=== PATIENT | female | born 1945 | race Caucasian/White ===

== ENCOUNTER 2017-05-28 14:30 | Inpatient (IN) | payer OTHER ==
--- NOTE | 2017-05-28 15:33 | EDPHY ---
HPI/HX/ROS/PE/MDM Narrative: CHIEF COMPLAINT: Leg swelling, dyspnea HPI: The patient is a 71 y/o female arriving with an acquaintance complaining of bilateral leg swelling and dyspnea onset about one month ago and worsening significantly this last week. Her medical history includes lupus and rheumatoid arthritis. Around the time her swelling began she noticed a cough as well. She' s had increasing dyspnea since these symptoms began and she has been unable to sleep while lying flat. This week she noticed blisters on both feet and intentionally ruptured these with a knife, but they have continued to reform. Three days ago she noticed redness and lymph draining from both legs. She went to urgent care two days ago and the urgent care doctor attempted to get her admitted to the hospital, but this did not happen. Last night she describes the fluid from her legs soaking her bed. She notes she has taken "a quarter of baby aspirin every 3-4 hours" for decades to treat her pain. REVIEW OF SYSTEMS: Aside from elements discussed in the HPI, a comprehensive 10-point review of systems was reviewed and is negative. PMH: Anxiety, lupus, rheumatoid arthritis, insomnia SOCIAL HISTORY: Nonsmoker. Acquaintance at bedside. "My boyfriend in 90 years old and barely drives." Prior medical records reviewed including ED visit 10/10/11 for ankle bleeding. PHYSICAL EXAM: General:Patient is alert, cachectic, talkative, in no acute distress. ENT:Eyes are normal to inspection. ENT inspection normal. Neck: Normal inspection. Full range of motion. Respiratory:No respiratory distress. Mild rales bilaterally. Cardiovascular: Tachycardic rate and rhythm. Strong peripheral pulses. Normal cap refill. Abdomen:The abdomen is nontender to palpation. There are no peritoneal signs. Back: Normal to inspection. No tenderness to palpation. Skin: Normal color. No rash. Warm and dry. Extremities: Severe 3+ pitting edema BLE with erythema extending to level just below knee. Diffuse weeping with multiple blisters and several chronic- appearing ulcers, worse on L rees and L posterior foot. Neuro: Oriented x3. Normal motor function. Normal sensory function. ED Course: This is a cachectic 71 y/o female with rheumatoid arthritis who presents with a one-month history of worsening bilateral leg swelling, cough, dyspnea, and orthopnea. She denies prior diagnosis of CHF or other cardiac or respiratory diseases, but is concerned that could be the cause of her symptoms today. On exam, she has mild rales bilaterally, tachycardia, and diffuse pitting edema of her bilateral lower extremities with weeping and ulcers. She is not hypoxemic. Presentation is suggestive of CHF. Plan for IV, labs, chest x-ray, EKG, and admission. Chest x-ray: cardiomegaly, no obvious infiltrate. The 12 lead EKG was interpreted by myself. Sinus mechanism rate 95. See hard copy and/or "tracemaster" electronic copy for interpretation. BNP elevated at 8100, which is consistent with CHF. Echocardiogram ordered. Spoke with hospitalist service. Dr. Myers accepts admission for CHF. MDM: This patient presents with signs and symptoms of acute CHF exacerbation. Her leg exam is quite impressive, but unclear if this represents acute cellulitis vs chronic changes - I have deferred antibiotics to inpatient team. She is in no acute distress. There are clearly some mental health issues underlying her presentation. I see no signs of PE, ACS, PTX, TAD. - Data Points Imaging Results: Imaging Impressions Chest X-Ray 05/28/17 15:39 Impression: Cardiomegaly without edison edema. No discrete pneumonia. Imaging: I viewed and interpreted images myself Laboratory Results: Laboratory Results 05/28/17 16:05 05/28/17 16:05 05/28/17 05/28/17 05/28/17 16:05 16:05 16:05 WBC 7.72 10^3/uL 10^3/uL (3.80-9.50) RBC 4.47 10^6/uL 10^6/uL (4.18-5.33) Hgb 12.6 g/dL g/dL (12.6-16.3) Hct 39.9 % % (38.0-47.0) MCV 89.3 fL fL (81.5-99.8) MCH 28.2 pg pg (27.9-34.1) MCHC 31.6 g/dL L g/dL (32.4-36.7) RDW 15.0 % % (11.5-15.2) Plt Count 237 10^3/uL 10^3/uL (150-400) MPV 9.6 fL fL (8.7-11.7) Neut % (Auto) 76.8 % H % (39.3-74.2) Lymph % (Auto) 10.5 % L % (15.0-45.0) [place] % (Auto) 10.9 % % (4.5-13.0) Eos % (Auto) 0.9 % % (0.6-7.6) Baso % (Auto) 0.6 % % (0.3-1.7) Nucleat RBC Rel Count 0.0 % % (0.0-0.2) Absolute Neuts (auto) 5.93 10^3/uL 10^3/uL (1.70-6.50) Absolute Lymphs (auto) 0.81 10^3/uL L 10^3/uL (1.00-3.00) Absolute Monos (auto) 0.84 10^3/uL H 10^3/uL (0.30-0.80) Absolute Eos (auto) 0.07 10^3/uL 10^3/uL (0.03-0.40) Absolute Basos (auto) 0.05 10^3/uL 10^3/uL (0.02-0.10) Absolute Nucleated RBC 0.00 10^3/uL 10^3/uL (0-0.01) Immature Gran % 0.3 % % (0.0-1.1) Immature Gran # 0.02 10^3/uL 10^3/uL (0.00-0.10) PT 15.9 SEC H SEC (12.0-15.0) INR 1.25 H (0.83-1.16) APTT 27.4 SEC SEC (23.0-38.0) Sodium 139 mEq/L mEq/L (135-145) Potassium 5.0 mEq/L mEq/L (3.5-5.2) Chloride 101 mEq/L mEq/L (97-110) Carbon Dioxide 29 mEq/l mEq/l (22-31) Anion Gap 9 mEq/L mEq/L (8-16) BUN 23 mg/dL mg/dL (7-23) Creatinine 0.5 mg/dL L mg/dL (0.6-1.0) Estimated GFR > 60 Glucose 88 mg/dL mg/dL (70-100) Calcium 8.9 mg/dL mg/dL (8.5-10.4) Total Bilirubin 0.8 mg/dL mg/dL (0.1-1.4) Conjugated Bilirubin 0.4 mg/dL mg/dL (0.0-0.5) Unconjugated Bilirubin 0.4 mg/dL mg/dL (0.0-1.1) AST 32 IU/L IU/L (14-46) ALT 57 IU/L H IU/L (9-52) Alkaline Phosphatase 115 IU/L IU/L (38-126) Troponin I < 0.012 ng/mL ng/mL (0.000-0.034) NT-Pro-B Natriuret Pep 8100 pg/mL H pg/mL (0-125) Total Protein 6.3 g/dL g/dL (6.3-8.2) Albumin 3.2 g/dL L g/dL (3.5-5.0) General Initial Vital Signs: Initial Vital Signs Temperature (C) 36.8 C 05/28/17 14:41 Heart Rate 84 05/28/17 14:41 Respiratory Rate 15 05/28/17 14:41 Blood Pressure 136/93 H 05/28/17 14:41 O2 Sat (%) 93 05/28/17 14:41 O2 Delivery Mode Room Air Allergies/Adverse Reactions: clindamycin Allergy (Verified 05/28/17 14:39) Penicillins Allergy (Verified 08/18/11 11:05) Home Medications: Medication Instructions Recorded Aspirin [Aspirin 81mg (*)] 20.25 mg PO Q3-4PRN PRN 05/28/17 Departure - Departure Disposition: [facility] Acute Condition: Fair Report Scribed for: Mariano Law Report Scribed by: Argelia Medley Date of Report: 05/28/17 Time of Report: 15:39 Physician Review and Approval Statement: Portions of this note were transcribed by an ED scribe. I personally performed the history, physical exam, and medical decision making; and confirm the accuracy of the information in the transcribed note.
[2017-05-28 16:28] LABS: PLATELET COUNT 237 10^3/uL (150-400)
--- NOTE | 2017-05-28 16:30 | CPEKG ---
Heart Rate: 95 RR Interval: 632 P-R Interval: 124 QRSD Interval: 84 QT Interval: 349 QTC Interval: 439 P Burnett: 75 QRS Burnett: 119 T Wave Burnett: 193 EKG Severity - ABNORMAL ECG - EKG Impression: SINUS RHYTHM EKG Impression: RIGHT AXIS DEVIATION EKG Impression: LOW VOLTAGE IN FRONTAL LEADS EKG Impression: ABNORMAL T, CONSIDER ISCHEMIA, LATERAL LEADS Electronically Signed By: Mariano Law 29-May-2017 16:37:36
[2017-05-28 16:46] LABS: INR 1.25 (0.83-1.16); PROTIME(PATIENT) 15.9 SEC (12.0-15.0)
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
[2017-05-28] MEDS ORDERED: HYDROmorphone HCL/NS 0.5 MG/ML SYR IVP PRN (19:44)
[2017-05-28] MEDS ORDERED: ONDANSETRON 4 MG/2 ML VIAL IVP PRN (19:44)
[2017-05-28] MEDS ORDERED: ONDANSETRON DISINTEGRATING 4 MG TAB PO PRN (19:44)
[2017-05-28] MEDS ORDERED: oxyCODONE IR 5 MG TAB PO PRN (19:44)
[2017-05-28] MEDS ORDERED: ACETAMINOPHEN 325 MG TAB PO PRN (19:44)
[2017-05-28] MEDS ORDERED: ASPIRIN 81 MG CHEWABLE TAB PO ONE (21:30)
--- NOTE | 2017-05-28 22:22 | GHP ---
[f rep st] HISTORY AND PHYSICAL DATE OF ADMISSION: 05/28/2017 CHIEF COMPLAINT: Leg pain. HISTORY: This is a 71-year-old female who is a challenging historian, but presents with complaints o f bilateral lower extremity leg swelling with weeping edema and pain. She notes this occurs in the s etting of having had several weeks where her breathing at night has gotten worse. She notes that ini tially she was sleeping, propped up on 2 pillows, but despite that she was having issues with cough a nd shortness of breath. This progressed to where she ultimately began sleeping sitting upright on he r couch at night. She notes that every time she tries to lie down, she becomes short of breath and s omewhat panicky. She believes that the issues with her legs only developed over the last week, altho ugh she admits that she does not tend to look at her naked body ever. She notes that when she did lo ok at her leg, she noted there was some blisters on the bilateral legs, and she and her boyfriend dec ided to sterilize a knife with alcohol and proceeded to cut the blisters open. Despite that, she not ed that the weeping continued and was soaking her socks and pants. She states she has not had blood work done or seen many doctors in the past. She thinks the last time she had blood work was approxim ately 40 years ago. She does describe significant issues with getting out of the house and not havin g transportation. She also has severe arthritis that she has dealt with for the last 40 years and martin s been medicating only with baby aspirin. PAST MEDICAL HISTORY: 1. Per patient, only arthritis. She believes it is rheumatoid, though she states she has tested neg ative for rheumatoid factor. 2. Eczema. She also states she has had a diagnosis of lupus. FAMILY HISTORY: Mother of CHF and COPD. SOCIAL HISTORY: Patient is originally from [place]. She is currently living alone here in [place]. 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 She has a boyfriend who lives in [place], and she sees intermittently. Otherwise, denies having much help here in town. She is a nonsmoker, nondrinke r. REVIEW OF SYSTEMS: A 10-point review of systems is obtained and negative except as per HPI. HOME MEDICATIONS: Aspirin, approximately 20 mg every 3-4 hours as needed. ALLERGIES: Include clindamycin and penicillin. PHYSICAL EXAMINATION: VITAL SIGNS: Blood pressure 128/68, heart rate 78, respiratory rate 18, O2 sa turations 96% on room air. Temperature is 37. GENERAL APPEARANCE: This is a very thin/cachectic wo man. She is awake and alert. She is in no acute distress. EYES: Anicteric. HENT: Oropharynx kaley ar. CARDIOVASCULAR: Regular rate and rhythm, no murmurs, rubs or gallops. PULMONARY: Clear to aus cultation bilaterally to anterior exam. ABDOMEN: Soft, nontender. Positive bowel sounds. EXTREMITIES: Bilateral lower extremities with weeping edema and significant erythema to the knees. There are what appear to be chronic wounds on the medial aspect of the ankles bilaterally, as well as the shins; very tender to palpation. NEUROLOGIC/PSYCHIATRIC: Patient is quite tangential in her sp eech, and her speech is pressured, but otherwise pleasant and appropriate. CLINICAL DATA: Labs reviewed. Significant for a proBNP of 8100. Troponins are negative x2. TSH is 3.4. White blood cell count is 7.7. Chest x-ray personally reviewed and interpreted, shows cardiomegaly without edison edema or pneumonia. EKG personally reviewed and interpreted shows sinus rhythm, right axis deviation. ASSESSMENT AND PLAN: This is a 71-year-old female with past medical history that includes advanced r heumatoid arthritis and question of lupus presenting with severe bilateral lower extremity edema and concerns for congestive heart failure. 1. Congestive heart failure: The patient has what appears to be largely right-sided symptoms of hea rt failure, though also complaints of orthopnea and paroxysmal nocturnal dyspnea. Chest x-ray does n ot show significant pulmonary edema. Will obtain an echocardiogram in the morning. BNP quite elevat ed. Troponin is negative and EKG not showing any signs of acute ischemia. 2. Bilateral lower extremity edema/venous stasis. As above, patient's bilateral lower extremities a re significantly erythematous with weeping edema and what appeared to be chronic nonhealing wounds, l ikely secondary to chronic venous stasis. A wound care consultation has been placed and echocardiogr am ordered. 3. Rheumatoid arthritis. The patient with severe deformities of the hands consistent with a presume d diagnosis of rheumatoid arthritis. Patient states that she has attempted to have a diagnosis made in the past, which was never made, and she has not been on any sort of rheumatoid arthritis medicatio ns. Physical Therapy and Occupational Therapy to be involved. 4. Severe protein calorie malnutrition. Patient presenting with a body mass index of 16. She appea rs cachectic. Will place a dietary consult. We will provide Ensure with meals. 5. Failure to thrive. Concern for patient's overall current living situation. It does sound as if she is alone and has difficulty getting out of the house. She has been dealing with these health iss ues for quite some time without any way to really get herself to a doctor. Case Management, Physical Therapy, and Occupational Therapy to be involved. 6. Code status. Patient states she would like to be a do not resuscitate. DISPOSITION: Inpatient status, given multiple comorbidities with lack of prior workup, suspect patie nt will need greater than 48 hours' stay. Patient is new to my care. Old records reviewed, summarized as per HPI, and past medical history. C are plan reviewed with ER physician including plans for further workup of presumed congestive heart f ailure. /[id number]/MODL
--- NOTE | 2017-05-29 00:38 | PDMN ---
Medical Necessity Medical necessity: C/M review: est. > 2 MN LOS for eval and TX of acute and persistent - congestive heart failure, orthopnea, paroxysmal nocturnal dyspnea, bilateral lower extremity edema / venous stasis - bilateral lower extremities erythematous with weeping edema and what appeared to be chronic nonhealing wounds present on admission, severe protein calorie malnutrition, failure to thrive requiring planned echocardiogram, Dietary consult, Wound care consult, Case management consult, ongoing cardiac monitoring, pulse oximetry, acute inpt PT/OT,. comorbid rheumatoid arthritis with severe deformities f the hands present on admission, history of eczema, lupus per H/P.
[2017-05-29 03:49] LABS: PLATELET COUNT 186 10^3/uL (150-400)
[2017-05-29] MEDS ORDERED: ENOXAPARIN 30 MG/0.3 ML SYR SC SCH (09:00)
[2017-05-29] MEDS ORDERED: VANCOMYCIN HCL/NORMAL SALINE 250 ML IV SCH (14:00)
[2017-05-29] MEDS: VANCOMYCIN 1 GM in NS 250 ML IV SCH (14:35)
--- NOTE | 2017-05-29 15:15 | HOSPPROG ---
Hospitalist Progress Note Assessment/Plan: 71 yo female admitted with perpheral edema, and possible cellulits of lower extremities. Blood culture growing gram + organism as yet unidentified. -acute sepsis with bacteremia of gram + cocci, possible cellulitis 2/2 lower extremity infection and edema. Will hold antibiotics per ID as organism is not identified and is a possible contaminant; patient is not septic, Bp, pulse, temp , WBC all normal -CHF with cardiomegaly on CXR and edema of unclear etiology. No h/o CAD, no meds; patient does not see physicians. History unclear. Will need further information -Cellulitis: culture pending. This may represent petechae and soft tissue hemorrhage 2/2 edema, no infection -RA with ulnar deformities of hands and feet; untreated now. No h/o treatment _SPCM: dietary consult -psycho-social issue: will investigate through friends and any family if available Time: 50 minutes; discussed with nursing and team on rounds; discussed with ID Subjective: numerous complaints; no chest pain, SOB, nausea; cannot explain time course of edema; no h/o treatment Objective: Vital Signs Temp Pulse Resp BP Pulse Ox 36.7 C 88 18 93/42 L 92 05/29/17 12:00 05/29/17 12:00 05/29/17 12:00 05/29/17 12:00 05/29/17 12:00 Laboratory Results 05/29/17 03:30 05/29/17 03:30 05/28/17 05/29/17 05/30/17 05:59 05:59 05:59 Intake Total 200 Output Total 250 Balance -50 PT 15.9 SEC (12.0-15.0) H 05/28/17 16:05 INR 1.25 (0.83-1.16) H 05/28/17 16:05 - Time Spent With Patient Time Spent with Patient: greater than 35 minutes Time Spent with Patient: Greater than 35 minutes spent on this patients care, greater than 50% of time spent counseling, educating, and coordinating care regarding the above mentioned plan. - Pending Discharge Pending Discharge Within 24 Hours: No Pending Discharge Within 48 Hours: No - Physical Exam Constitutional: no apparent distress, chronically ill appearing Eyes: PERRL, anicteric sclera Ears, Nose, Mouth, Throat: moist mucous membranes, hearing normal Cardiovascular: regular rate and rhythym, no murmur, rub, or gallop, JVD Respiratory: no respiratory distress, no rales or rhonchi, clear to auscultation Gastrointestinal: normoactive bowel sounds, soft, non-tender abdomen, no palpable masses Genitourinary: no bladder fullness Skin: warm Musculoskeletal: generalized weakness, other (ulnar deformity of wrist; slight deformity of feet; edema LE with superficial lesions. ) ICD10 Worksheet Patient Problems: Problems Problem Status Onset Cellulitis of leg, right Acute
--- NOTE | 2017-05-29 17:59 | ASMTCMCOM ---
CM Note CM Note Notes: 05/29/2017 Case Management Note Met w/pt. Pt reports tooth extraction on Wednesday through [facility]. She had a follow up appointment on . [place] [facility] [place] and was instructed to come to the hospital but delayed care until after her follow up dental appointment on . Pt lives alone. She has a limited income and is unable to hire 28/09 care. Her friend Donta lives in [place] and is able to help sporadically. Her boyfriend of 13 years Vern is in his 90's and is unable to provide care for pt. Pt is over assets for Medicaid as she owns her own home and has a pension. Case Management faxed referrals to [facility], [facility] and [facility]. Case Management d/c poc: to SNF rehab pending acceptance. Case Management to follow. Date Signed: 05/29/2017 05:58 PM Electronically Signed By:Ana Olivas RN
[2017-05-30] MEDS: VANCOMYCIN 1 GM in NS 250 ML IV SCH (02:31)
[2017-05-30 04:10] LABS: PLATELET COUNT 195 10^3/uL (150-400)
[2017-05-30] MEDS: ENOXAPARIN 40 MG/0.4 ML SYR SC SCH (10:10)
[2017-05-30] MEDS: SODIUM FERRIC GLUCONAT/SUCROSE 125 MG in NS 100 ML IV SCH (12:00)
--- NOTE | 2017-05-30 13:54 | WOCRNPDOC ---
[facility] Advanced Assessment Note - Skin Integrity Problem, Advanced Assess Left Lower Lateral Leg Venous Stasis Ulcer Dressing Type: Allevyn Life Dressing Description: Intact, Shadowed Exudate Amount: Minimal Exudate Characteristic(s): Sanguinous Integumentary Issue Intervention: Dressing Changed, Dressing Initialed & Dated Chika Wound Tissue: Erythema, Swollen Chika Wound Swelling: Moderate Wound Bed Color: Brown, Yellow Wound Bed Constitution: Scab, Dried Exudate Site Measurement - Head-to-Toe Length X Width X Depth (cm): 3.5x3.2xscab Skin Integrity Problem Comment: Patient believes this wound began as a blister. She has "taken care of it" since it's formation by allowing it to develop a "nice scab". Wound cleaned gently with NS and gauze. Wound bed covered with therahoney gel and covered with an allevyn. Wound care will round again later this week. Right First Toe Blister Dressing Type: Kerlix, Vaseline Gauze Dressing Dressing Description: Clean/Dry, Intact Exudate Amount: None Integumentary Issue Intervention: Dressing Changed Chika Wound Tissue: Erythema, Swollen, Shiny, Thin, Painful/Tender Wound Bed Constitution: Intact Serous Filled Blister Site Measurement - Head-to-Toe Length X Width X Depth (cm): 4x2.5xintact blister Right Distal Foot Blister Dressing Type: Kerlix, Vaseline Gauze Dressing Dressing Description: Intact, Shadowed Exudate Amount: Minimal Exudate Color: Reddish/Yellow Exudate Characteristic(s): Serosanguinous Integumentary Issue Intervention: Dressing Changed, Hydrogel Applied Chika Wound Tissue: Erythema, Swollen, Painful/Tender Wound Bed Color: Red Wound Bed Constitution: De-roofed Serous Blister Site Measurement - Head-to-Toe Length X Width X Depth (cm): 3x2.5x0.1 Skin Integrity Problem Comment: Patient with several wounds to this region. She reports that they all began as serous filled blisters but now are in various states but largely de-roofed. Area extremely tender. Area cleaned very gently with NS and gauze. Hydrogel applied to wound beds, covered with a contact layer , and wrapped with kerlix. Wound care will round again later this week. Right Proximal Foot Blister Dressing Type: Kerlix, Vaseline Gauze Dressing Exudate Amount: Minimal Exudate Color: Reddish/Yellow Exudate Characteristic(s): Serosanguinous Integumentary Issue Intervention: Dressing Changed, Hydrogel Applied Chika Wound Tissue: Erythema, Swollen, Painful/Tender Wound Bed Color: Red Wound Bed Constitution: De-roofed Serous Blister Wound Edges: Well Defined Site Measurement - Head-to-Toe Length X Width X Depth (cm): 1.5x2.2x0.1 Right Lateral Dorsal Foot Blister Dressing Type: Kerlix, Vaseline Gauze Dressing Dressing Description: Intact, Shadowed Exudate Amount: Minimal Exudate Color: Reddish/Yellow Exudate Characteristic(s): Serosanguinous Integumentary Issue Intervention: Dressing Changed, Hydrogel Applied Chika Wound Tissue: Erythema, Swollen, Painful/Tender Wound Bed Color: Brown, Red Wound Bed Constitution: Dried Exudate, De-roofed Serous Blister Wound Edges: Well Defined Site Measurement - Head-to-Toe Length X Width X Depth (cm): 2x2.8x0.1 Skin Integrity Problem Comment: As all the others, this wound began as a serous filled blister, now a de-roofed blister with adhered exudate covering a portion of the wound.
--- NOTE | 2017-05-30 14:39 | GCON ---
[f rep st] CONSULTATION INFECTIOUS DISEASES CONSULTATION DATE OF CONSULTATION: 05/30/2017 REQUESTING PHYSICIAN: Bandar Simmons MD REASON FOR CONSULTATION: Positive blood cultures. HISTORY OF PRESENT ILLNESS: This is a 71-year-old woman who presented to the emergency room on 05/28/2017, after not seeing a physician for more than 5 years , describing increased shortness of breath and bilateral leg swelling that onset about 1 month ago. The patient denies any specific injuries to her lower extremities and noticed spontaneous blisters that developed on her feet, 1 which she intentionally ruptured with a knife. 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 She also feels intermittent heart racing, but does not know whether she is having fever or chills. She denies any significant weight loss. REVIEW OF SYSTEMS: A 10-point review of systems was performed and is negative except as mentioned in the HPI. Patient denied any urinary symptoms. 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 SOCIAL HISTORY: Nonsmoker. No alcohol. Difficult to get additional social history due to tangential speech. She does note that she has a boyfriend that is 90 years old. FAMILY HISTORY: Reviewed and noncontributory. ALLERGIES: Penicillin causes a mild rash. Clindamycin causes itching and facial swelling. MEDICATIONS: While hospitalized include Tylenol. She received a dose of vancomycin, enoxaparin, iron, IV hydromorphone, Zofran, and oxycodone IR. Her home medications are only aspirin. PHYSICAL EXAMINATION: VITAL SIGNS: She has been afebrile throughout her hospital course. BP 104/48, heart rate 86, respiratory rate 16, saturation 95% on room air, temperature 36.3. GENERAL: This is a cachectic woman with a BMI of 14, lying in bed with rapid fire speech. No dyspnea. HEENT: Fair dentition. Mildly dry mucous membranes. No oral ulcerations. NECK: Supple and thin. CARDIOVASCULAR: Regular rate. Faint systolic murmur. CHEST: Breathing easy. Clear bilaterally. ABDOMEN: Scaphoid, thin, nontender. Bowel sounds are present. EXTREMITIES: Patient has bilateral lower extremity edema, and a stocking distribution of petechiae in her bilateral lower extremities, with overlying erythema right greater the left, with multiple bullae of the right lower extremity, most prominently on the dorsum of her right foot. She also has a more chronic-appearing ulcer on the lateral aspect of her left leg that is a bit larger than a silver dollar with necrotic scab in the base. Significant tenderness to palpation of her legs, particularly on the dorsum. Unable to palpate pulses on the right due to pain, but I did palpate normal pulse on the dorsum of her foot on the left. Joint exam shows chronic changes consistent with rheumatoid arthritis, but no active joint inflammation. SKIN: Only significant findings are listed under the extremity exam. NEUROLOGIC: She is moving all 4 extremities equally. Marked tangential speech. LABORATORY DATA: White count has been normal throughout hospitalization. Today is 5.8, hematocrit 34, platelets of 195, 65% neutrophils, 70% lymphocytes , 13% monocytes. INR 1.25. Creatinine on admission 0.5, today 0.4. AST 32, ALT 57, BNP 81, albumin 3.2. B12 877, folate greater than 20. TSH 3.4. Iron saturation is 18, TIBC 325, iron is 57. Blood cultures 1 of 2 are growing Aerococcus viridans. IMAGING: Chest x-ray on admission showed cardiomegaly without edison edema or focal pneumonia. EKG was performed that showed a sinus with right axis deviation. Reportedly, echocardiogram was performed, but results are not available. ASSESSMENT AND PLAN: This is a 71-year-old woman with underlying rheumatoid arthritis, not on any therapy for rheumatoid arthritis, who presents with bilateral lower extremity edema x1 month with overlying petechial rash and superimposed erythema most prominently on the right side. 1. Right LE cellulitis. Interestingly, no other laboratory or clinical signs of infection such as fever, hypotension, or tachycardia, but patient may have a blunted response to infection due to underlying malnutrition. The patient does have some mild reactions to penicillin, therefore, treatment with cephalosporins is likely safe. Would start cefazolin 1 g IV q.8 to direct therapy toward cellulitis mediated by Streptococcus. No evidence of purulence making Staphylococcus aureus less likely, MRSA unlikely since patient has not received antibiotics in many years. 2. Underlying petechial rash B LE and bullae: due to infection or vasculitis with bullae . 3. Aerococcus viridans. Typically a urinary pathogen but no urinary data obtained at admit, which was not unreasonable as no symptoms. Unclear to me whether this is a true pathogen. At this point, I would just proceed with therapy with cefazolin and assess further if this is a significant pathogen. If increasing concern that pathogen typically use PCN, higher generation cephalosporin, carbapenem or vancomycin could be used. Thank you for this consultation. We will continue to follow on a daily basis. /[id number]/MODL MTDD
--- NOTE | 2017-05-30 15:28 | HOSPPROG ---
Hospitalist Progress Note Assessment/Plan: 71 yo female admitted with perpheral edema, and possible cellulits of lower extremities. Blood culture growing aerococcus viridans. Is unclear if this is a pathogen. The wounds themselves appear more like strep infections. -acute sepsis with bacteremia growing aerococcus viridans. Wounds itself looked more like strep infection. Patient is currently covered with Rocephin and ID is following closely. It is also possible the area of involves a local vasculitis secondary to her rheumatologic disease. She has not had treatment for the RA for many years. -CHF with cardiomegaly on CXR and edema of unclear etiology. No h/o CAD, no meds; patient does not see physicians. History unclear. Will need further information -complaint of chest pain with a normal ECG and no accompanying symptoms of radiation pleuritic pain. Doubt strongly this is coronary disease. -RA with ulnar deformities of hands and feet; untreated now. No h/o treatment. Will check CRP sed rate HUAN and rheumatoid factor. -SPCM: dietary consult -anemia, iron deficiency suspected; will order Iron studies and give IV iron while in the hospital -psycho-social issue: will investigate through friends and any family if available. CT scan today showed a small meningioma without significant mass effect. Also mild to moderate stenosis at foreamen magnum. None clinical. Behavior medicine consult today. Time: 50 minutes; discussed with nursing and team on rounds; discussed with ID dispo: -patient should go to a SNF given the appearance of her ability for self care. It is unclear if you will accept this. She does not have significant support as there is no family here to help. She seems to avoid physicians. -assess disposition re the behavior medicine findings. She demonstrates tangential thinking and poor judgement; ? if schizophrenia. Subjective: Reports she is feeling better but unspecified improvement. She complains of some chest pain but it is non local. She denies cough fever shortness of breath or pleuritic chest pain. Also denies prior history of coronary disease. Objective: Vital Signs Temp Pulse Resp BP Pulse Ox 37.3 C 88 15 98/47 L 93 05/30/17 15:18 05/30/17 15:18 05/30/17 15:18 05/30/17 15:18 05/30/17 15:18 Laboratory Results 05/30/17 03:17 05/30/17 03:17 05/29/17 05/30/17 05/31/17 05:59 05:59 05:59 Intake Total 200 880 110 Output Total 250 700 600 Balance -50 180 -490 PT 15.9 SEC (12.0-15.0) H 05/28/17 16:05 INR 1.25 (0.83-1.16) H 05/28/17 16:05 - Time Spent With Patient Time Spent with Patient: greater than 35 minutes Time Spent with Patient: Greater than 35 minutes spent on this patients care, greater than 50% of time spent counseling, educating, and coordinating care regarding the above mentioned plan. - Pending Discharge Pending Discharge Within 24 Hours: No Pending Discharge Within 48 Hours: No - Physical Exam Constitutional: no apparent distress, cachectic, other (reports she has always been thin) Eyes: PERRL Ears, Nose, Mouth, Throat: moist mucous membranes, hearing normal Cardiovascular: regular rate and rhythym, no murmur, rub, or gallop Respiratory: no respiratory distress, no rales or rhonchi, clear to auscultation Gastrointestinal: normoactive bowel sounds, soft, non-tender abdomen, no palpable masses Genitourinary: no bladder fullness Skin: warm Musculoskeletal: other (RA deformities of hands and wrist; some ankle, foot deformity) Neurologic: AAOx3, CN II-XII Intact Psychiatric: poor judgement, other (some tangential thinking) ICD10 Worksheet Patient Problems: Problems Problem Status Onset Cellulitis of leg, right Acute chronic disease mgmt/transitional care Acute
--- NOTE | 2017-05-30 15:43 | ASMTCMCOM ---
CM Note CM Note Notes: 05/30/2017 Case Management Note Discussed pt during rounds. Met w/pt in the afternoon to inform of acceptance to [facility]. Pt requested case management fill brother Ishan in on d/c plans. Ishan can be reached at [phone]. Ishan shared that pt is exceptionally bright and started college at age 15 at [employer]. Per Ishan pt graduated at the top of her class. 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 Per Ishan pt moved to [place] in late . Ishan stated that pt appearance has not changed recently and she has not lost any weight recently. Per Ishan, pt is at her baseline. Ishna stated that he is not in a position to provide any caregiving support for his sister. Informed Ishan of d/c plan for [facility] SN[facility] rehab, Ishan in agreement. Case Management requested behavioral health consult with Babita Lucas. Case Management d/c poc: [facility] Case Management to follow. Date Signed: 05/30/2017 03:43 PM Electronically Signed By:Ana Olivas RN
[2017-05-31] MEDS: SODIUM FERRIC GLUCONAT/SUCROSE 125 MG in NS 100 ML IV SCH (10:10)
[2017-05-31] MEDS: ENOXAPARIN 40 MG/0.4 ML SYR SC SCH (12:36)
[2017-05-31] MEDS: ENOXAPARIN 30 MG/0.3 ML SYR SC SCH (14:08)
--- NOTE | 2017-05-31 14:36 | PCMIDPN ---
Assessment/Plan: Assessment: Right lower extremity cellulitis. Non confluent deep erythema persists. Patient does not have any systemic symptoms. She does have underlying immunosuppression autoimmune disease which probably contributes to her proclivity to get soft tissue infection. It is unclear whether the excess edema of the lower extremity pre seeded the infection or is a result of the infection. Plan to continue empiric cefazolin and observe for clinical improvement. I believe that her positive blood culture with aerococcus viridans is a contaminant due to lack of systemic symptoms and lack of growth of the 2nd set of blood cultures. Plan: 1. Continue IV cefazolin. 2. Follow clinical course. Subjective: Patient is resting in her hospital bed. She is complaining about trivial aspects of the food. She denies any fevers or chills. Complains about a lot of minor issues including blood draws and anticoagulation therapy. No significant change in lower extremity swelling or pain. Discussion is challenging secondary to patient's tendency to wander topics. Objective: Cefazolin # 1 Vital Signs Temp Pulse Resp BP Pulse Ox 36.8 C 93 16 105/47 L 93 05/31/17 12:00 05/31/17 12:00 05/31/17 12:00 05/31/17 12:00 05/31/17 12:00 Microbiology 05/30/17 11:25 Gram Stain - Final Foot - Eswab Laboratory Results 05/31/17 04:01 05/30/17 03:17 05/30/17 05/31/17 06/01/17 05:59 05:59 05:59 Intake Total 880 435 110 Output Total 700 1025 200 Balance 180 -590 -90 ESR 25 MM/HR (0-30) 05/31/17 04:01 C-Reactive Protein 55.0 mg/L (<10.0) H 05/31/17 04:01 - Physical Exam General Appearance: WD/WN, alert, no apparent distress, thin, non-toxic Respiratory: lungs clear, normal breath sounds, No respiratory distress Cardiac/Chest: regular rate, rhythm, No tachycardia Extremities: swelling, erythema, No non-tender, No normal inspection, No necrosis Skin: normal color, warm/dry, No rash Neuro/Psych: alert, normal mood/affect, oriented x 3 ICD10 Worksheet Patient Problems: Problems Problem Status Onset Cellulitis of leg, right Acute - ICD10 Problem Qualifiers (1) Cellulitis of leg, right
--- NOTE | 2017-05-31 16:02 | ASMTCMCOM ---
CM Note CM Note Notes: 05/31/2017 Case Management Note Discussed pt during multi disciplinary rounds this morning. Met w/pt this afternoon to discuss pt meeting with [facility] from [facility]. [facility] reviewing wound care notes. Preferred facility is [facility] for pt. Pt stated she has utilized a pyschotherapist at [facility] in the past. Provided info on [facility] outpatient counseling center. Case Management d/c poc: [facility] is pending per [facility] after wound care notes are reviewed. Case Management to follow. Date Signed: 05/31/2017 04:01 PM Electronically Signed By:Ana Olivas RN
--- NOTE | 2017-05-31 17:24 | HOSPPROG ---
Hospitalist Progress Note Assessment/Plan: DIAGNOSES: -acute on likely chronic R side CHF -severe stasis dermatitis iwth uclerations -cellulitis of legs -suspect pulm HTN -concern for COPD due to Xray findings and and R side CHF, and second hand smoke hx -anemia, normocytic, is likely anemia of chronic disease and malnutrition, doubt true Fe deficiency but will check ferritin -severe protein calorie malnutrition -suspect a social phobia disorder/? PTSD PLANS: -I have ordered echocardiogram -I have ordered PFTs -continue abx -wound care -will begin attempt at diuresis -check ferritin levels were and will hold on any further iron therapy until we have that back -she is fairly reluctant to use nutrition supplements but I have encouraged her to trying get nutrition supplements on board In addition to my visit with this patient for rounds I visited her with interdisciplinary rounds and also reviewed her case in detail today with Dr. Rajiv Stout SUBJECTIVE: Complains of ongoing leg and foot pain particularly her right foot Her other main complaint right now is trying to figure out had ordered food from the menu OBJECTIVE Vitals reviewed: Stable without fever Prescription Eyeglass Maker, my review: Sinus Exam: alert oriented, quite anxious skin warm dry color ok resps not labored lungs diminished but otherwise clear BSs heart regular abd soft nondistended nontender, bowel sounds present limbs warm, with marked edema from the upper calf down to the distal feet and quite a bit of severe stasis dermatitis, some open wounds as described earlier, nothing necrotic iv site ok Lab data: Sed rate is normal, CRP a bit elevated in the 50s, other serologic inflammatory markers are all normal so far Stool hemoccults negative Basic met panel normal Hemoglobin remains stable, is normocytic Objective: Vital Signs Temp Pulse Resp BP Pulse Ox 36.9 C 114 H 22 H 129/62 H 91 L 05/31/17 16:40 05/31/17 16:40 05/31/17 16:40 05/31/17 16:40 05/31/17 16:40 Microbiology 05/30/17 11:25 Gram Stain - Final Foot - Eswab Laboratory Results 05/31/17 04:01 05/30/17 03:17 05/30/17 05/31/17 06/01/17 06:59 06:59 06:59 Intake Total 880 435 160 Output Total 950 775 650 Balance -70 -340 -490 PT 15.9 SEC (12.0-15.0) H 05/28/17 16:05 INR 1.25 (0.83-1.16) H 05/28/17 16:05 - Time Spent With Patient Time Spent with Patient: greater than 35 minutes Time Spent with Patient: Greater than 35 minutes spent on this patients care, greater than 50% of time spent counseling, educating, and coordinating care regarding the above mentioned plan. ICD10 Worksheet Patient Problems: Problems Problem Status Onset Cellulitis of leg, right Acute
[2017-05-31] MEDS ORDERED: FUROSEMIDE 20 MG TAB PO ONE (17:30)
[2017-06-01] MEDS: ENOXAPARIN 30 MG/0.3 ML SYR SC SCH (07:51)
[2017-06-01] MEDS ORDERED: ENOXAPARIN 30 MG/0.3 ML SYR SC SCH (09:00)
--- NOTE | 2017-06-01 09:50 | ECHO ---
[email or web address] [address] [address] Main: [phone] Fax: Transthoracic Echocardiogram Name: WENDY MOHR MR#: [id number] Study Date: 06/01/2017 Study Time: 08:11 AM Date of : 1945 Age: 71 year(s) Height: 160 cm (63 in.) Weight: 36.29 kg (80 lb.) BSA: 1.31 m2 Gender: Female Examination: Echo Indication: CHF Image Quality: Contrast: Requested by: Chad Dia BP: 106 mmHg/60 mmHg Heart Rate: Rhythm: Indication: CHF Procedure [employer] City Weighmaster: Cary Martinez [facility] Reading Physician: Nicolette Jacobs MD Requesting Provider: Conclusions: Normal size left ventricle. No LV hypertrophy. Normal global systolic LV function. The ejection fraction is estimated to be 45-50 %. LV septal motion consistent with conduction abnormality.. Normal size right ventricle. Normal RV function. The right atrium is mildly to moderately dilated. Mild mitral valve regurgitation is present. Thickening of both mitral valve leaflets with some semi-mobile components concerning for vegetation. Moderate to severe tricuspid valve regurgitation. Small pericardial effusion. No echocardiographic evidence of hemodynamic compromise. There is a pleural effusion. Consider ISIDORO Measurements: Chambers Valvular Assessment AV/MV Valvular Assessment TV/PV Normal Normal Normal Name Value Range Name Value Range Name Value Range Ao Roxanne (MM): 2.9 cm (2.2 cm-3.7 AV meanP mmHg ( - ) TR Vmax: 2.54 mm/s ( - ) cm) MV E Vmax: 0.70 m/s ( - ) TR PGmax: 26 mmHg ( - ) IVSd (2D): 0.6 cm (0.6 cm-1.1 MV A Vmax: 0.74 m/s ( - ) syst. PAP: 36 mmHg ( - ) cm) MV E/A: 0.95 ( - ) LVDd (2D): 4.6 cm (3.9 cm-5.3 cm) LVDs (2D): 3.3 cm (2.1 cm-4 cm) LVPWd (2D): 0.8 cm ( - ) Patient: WENDY MOHR Study Date: 06/01/2017 Page 1 of 2 08:11 AM LVEF (MOD4): 63 % (>=55 %) EF Range: 45-50 % Continued Measurements: Chambers Valvular Assessment AV/MV Valvular Assessment TV/PV Name Value Name Value Name Value LADs: 3.2 cm MV E/E' Septal: 12.40 CVP (est.): 10 mmHg LADs Lon.6 cm MV E/E' Lateral: 7.30 LA Area: 20.4 cm2 Findings: Left Ventricle: Normal size left ventricle. No LV hypertrophy. Normal global systolic LV function. The ejection fraction is estimated to be 45-50 %. LV septal motion consistent with conduction abnormality.. Right Ventricle: Normal size right ventricle. Normal RV function. Left Atrium: The left atrium is normal in size. Right Atrium: The right atrium is mildly to moderately dilated. Mitral Valve: Mild mitral valve regurgitation is present. Thickening of both mitral valve leaflets with some semi-mobile components concerning for vegetation. Aortic Valve: The aortic valve is normal in appearance and function. Trivial aortic valve regurgitation. Tricuspid Valve: Moderate to severe tricuspid valve regurgitation. The tricuspid valve leaflets are thickened with some semi mobile components. This is concerning for vegetation. . Pulmonic Valve: The pulmonic valve is normal in appearance and function. Trivial pulmonic valve regurgitation. Aorta: The aorta is normal. Pericardium: Small pericardial effusion. No echocardiographic evidence of hemodynamic compromise. There is a pleural effusion. (No Signature Object) Patient: WENDY MOHR Study Date: 06/01/2017 Page 2 of 2 08:11 AM [id number]
[2017-06-01] MEDS ORDERED: NS 1,000 ML IV ONE (09:52)
--- NOTE | 2017-06-01 11:08 | PCMIDPN ---
Assessment/Plan: #Aerococcus MV/TV endocarditis: probably safe to give B lactam but with underlying anxiety about new dx, did not discuss risk/benefits of re-challenge with PCN. --start vancomycin 500mg IV daily based on Cr 34 and very low weight --close monitoring of vancomycin levels (prior to ID consult got total 1gm IV q12 x 2, worried could be hanging around) --Check level before dose tomorrow just to r/o high level. --ordered sensi on aerococcus --repeat blood cx 06/02 --ISIDORO tomorrow to better delineate disease # RLE cellulitis: vancomycin will cover, generally improved Meds cefazolin 1gm IV q8 --DC today start vancomycin 500mg IV daily Subjective: pressured speech quickly jumping from one topic to the next. Seems to understand new diagnosis of endocarditis ECHO showed endocarditis of 2 valves Objective: Vital Signs Temp Pulse Resp BP Pulse Ox 36.7 C 82 16 106/60 92 06/01/17 07:53 06/01/17 07:53 06/01/17 07:53 06/01/17 07:53 06/01/17 07:53 Microbiology 05/30/17 11:25 Gram Stain - Final Foot - Eswab Wound Culture - Final Staphylococcus Aureus Laboratory Results 05/31/17 04:01 06/01/17 06:25 05/31/17 06/01/17 06/02/17 05:59 05:59 05:59 Intake Total 435 510 Output Total 1025 2350 Balance -590 -1840 ESR 25 MM/HR (0-30) 05/31/17 04:01 C-Reactive Protein 55.0 mg/L (<10.0) H 05/31/17 04:01 - Physical Exam General Appearance: alert, no apparent distress, cachetic EENT: dry mucous membranes Respiratory: lungs clear, No accessory muscle use Neck: supple Cardiac/Chest: regular rate, rhythm, diastolic murmur, systolic murmur Extremities: inflammation, swelling, erythema (less intense RLE, still underlying petechial rash) Neuro/Psych: alert, oriented x 3 - Time Spent With Patient Time Spent with Patient: greater than 35 minutes (coordination of care with Dr. Dia, Dr Jacobs; education to patient about diagnosis) Time Spent with Patient: Greater than 35 minutes spent on this patients care, greater than 50% of time spent counseling, educating, and coordinating care regarding the above mentioned plan. ICD10 Worksheet Patient Problems: Problems Problem Status Onset Cellulitis of leg, right Acute chronic disease mgmt/transitional care Acute
[2017-06-01] MEDS ORDERED: VANCOMYCIN 500 MG in D5W 100 ML IV SCH ×2 (11:30→13:30)
--- NOTE | 2017-06-01 14:00 | ASMTCMCOM ---
CM Note CM Note Notes: 06/01/2017 Case Management Note Reviewed pt during multi disciplinary rounds this morning. Pt has vegetation on mitral valve. Started on IV vanco. D/C date is unclear, possibly later in the week. Faxed updates to [facility]. Case Management d/c poc: to [facility] Case Management to follow. Date Signed: 06/01/2017 02:00 PM Electronically Signed By:Ana Olivas RN
--- NOTE | 2017-06-01 19:54 | HOSPPROG ---
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 PTSD PLANS: -ISIDORO scheduled for tomorrow to further assess her mitral valve -continue antibiotics as per Dr. Janet Lara recommendations -I have ordered PFTs, still waiting for these to be done, patient has been unwilling to do them just yet -wound care -will begin attempt at diuresis -she remains fairly reluctant to use nutrition supplements, again I have encouraged her to trying get nutrition supplements on board In addition to my visit with this patient for rounds I visited her with interdisciplinary rounds and also reviewed her case in detail today with Dr. Janet Lara and Dr. 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: Sinus Exam: alert oriented, quite anxious skin warm dry color ok resps not labored lungs diminished but otherwise clear BSs heart regular abd soft nondistended nontender, bowel sounds present limbs warm, slightly less edema from the upper calf down to the distal feet and quite a bit of severe stasis dermatitis, multiple open wounds on ankles and feet as described earlier, appear unchanged at this time; cellulitis mildly decreased iv site ok Lab data: Sed rate is normal, CRP a bit elevated in the 50s, other serologic inflammatory markers are all normal so far Stool hemoccults negative Ferritin is actually in good range today Microbiology data: No new growth in blood cultures with aerococcus from 1 set Wound now with a Staph aureus, sensitive Echocardiogram, vegetation seen on mitral valve leaflets, preserved systolic function, no wall motion abnormalities, some mitral regurg with right atrial enlargement and severe tricuspid regurg Objective: Vital Signs Temp Pulse Resp BP Pulse Ox 36.8 C 100 15 93/56 L 93 06/01/17 19:27 06/01/17 19:27 06/01/17 19:27 06/01/17 19:27 06/01/17 19:27 Microbiology 05/30/17 11:25 Gram Stain - Final Foot - Eswab Wound Culture - Final Staphylococcus Aureus Laboratory Results 05/31/17 04:01 06/01/17 06:25 05/31/17 06/01/17 06/02/17 06:59 06:59 06:59 Intake Total 435 510 100 Output Total 775 2350 200 Balance -340 -1840 -100 PT 15.9 SEC (12.0-15.0) H 05/28/17 16:05 INR 1.25 (0.83-1.16) H 05/28/17 16:05 - Time Spent With Patient Time Spent with Patient: greater than 35 minutes Time Spent with Patient: Greater than 35 minutes spent on this patients care, greater than 50% of time spent counseling, educating, and coordinating care regarding the above mentioned plan. ICD10 Worksheet Patient Problems: Problems Problem Status Onset Cellulitis of leg, right Acute chronic disease [facility]/transitional care Acute
--- NOTE | 2017-06-01 19:57 | HOSPPROG ---
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 PTSD PLANS: -ISIDORO scheduled for tomorrow to further assess her mitral valve -continue antibiotics as per Dr. Janet Lara recommendations -I have ordered PFTs, still waiting for these to be done, patient has been unwilling to do them just yet -wound care -will begin attempt at diuresis -she remains fairly reluctant to use nutrition supplements, again I have encouraged her to trying get nutrition supplements on board In addition to my visit with this patient for rounds I visited her with interdisciplinary rounds and also reviewed her case in detail today with Dr. Janet Lara and Dr. 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, my review: Sinus Exam: alert oriented, quite anxious skin warm dry color ok resps not labored lungs diminished but otherwise clear BSs heart regular abd soft nondistended nontender, bowel sounds present limbs warm, slightly less edema from the upper calf down to the distal feet and quite a bit of severe stasis dermatitis, multiple open wounds on ankles and feet as described earlier, appear unchanged at this time; cellulitis mildly decreased iv site ok Lab data: Sed rate is normal, CRP a bit elevated in the 50s, other serologic inflammatory markers are all normal so far Stool hemoccults negative Ferritin is actually in good range today Microbiology data: No new growth in blood cultures with aerococcus from 1 set Wound now with a Staph aureus, sensitive Echocardiogram, vegetation seen on mitral valve leaflets, preserved systolic function, no wall motion abnormalities, some mitral regurg with right atrial enlargement and severe tricuspid regurg Objective: Vital Signs Temp Pulse Resp BP Pulse Ox 36.8 C 100 15 93/56 L 93 06/01/17 19:27 06/01/17 19:27 06/01/17 19:27 06/01/17 19:27 06/01/17 19:27 Microbiology 05/30/17 11:25 Gram Stain - Final Foot - Eswab Wound Culture - Final Staphylococcus Aureus Laboratory Results 05/31/17 04:01 06/01/17 06:25 05/31/17 06/01/17 06/02/17 06:59 06:59 06:59 Intake Total 435 510 100 Output Total 775 2350 200 Balance -340 -1840 -100 PT 15.9 SEC (12.0-15.0) H 05/28/17 16:05 INR 1.25 (0.83-1.16) H 05/28/17 16:05 ICD10 Worksheet Patient Problems: Problems Problem Status Onset Cellulitis of leg, right Acute chronic disease [facility]/transitional care Acute
[2017-06-02] MEDS ORDERED: LIDOCAINE 2% 5 ML SDV ONE (09:08)
[2017-06-02] MEDS ORDERED: PROPOFOL 200 MG/20 ML VIAL ONE (09:08)
--- NOTE | 2017-06-02 09:17 | PDHPUP ---
History & Physical Update H&P update statement: This history and physical update is based on an assessment of the patient which was completed after admission or registration (within 24 hours), but prior to the surgery/procedure. H&P update: H&P reviewed & patient examined
[2017-06-02] MEDS ORDERED: ALBUTEROL 3 ML DEYVIAL IH PRN (09:57)
--- NOTE | 2017-06-02 09:58 | POSTANESTH ---
Post Anesthetic Evaluation Cardiovascular Status: Normal, Stable Respiratory Status: Normal, Stable Level of Consciousness/Mental Status: Moderately Sleepy Pain Control: Adequate, Prn Tx Ordered Nausea/Vomiting Control: Adequate, Prn Tx Ordered Complications Possibly Related to Anesthesia: None Noted
--- NOTE | 2017-06-02 10:17 | CPIP ---
[f rep st] INVASIVE CARDIAC PROCEDURE PROCEDURE: Transesophageal echocardiogram. Ms. Martinez gave permission to do a transesophageal echocardiogram. This was pre any anesthetic recei edwin. She tolerated the procedure very well. There were no complications. We used a pediatric scope that was passed very easily with no complications. We then obtained images with this scope. The patient tolerated it very well. Anesthesia was present the entire time and the patient is waking up as I am dictating. The actual results of the study are in the transesophageal echocardiogram repo rt. When I discussed the procedure with the patient. I told her that there was an increased risk of perf oration for her because of her small size, comorbidities and her long history of dysphagia, difficult y swallowing pills, difficulty swallowing certain foods and a long history of esophageal complaints. She is also suffering with rheumatoid arthritis and multiple other issues. This makes her at higher risk for perforation and also makes her at higher risk for tolerating any co mplications that might come under the study and I specifically discussed with her that possibility th at she may need surgery and also the possibility that she could from the test as well, or its com plications. Complications including perforation, infection, bleeding, etc. She understood all of th is and was willing to proceed. This is the day of her and she is not happy about that. So we did not discuss that very signif icantly. /[id number]/MODL
[2017-06-02] MEDS: ENOXAPARIN 30 MG/0.3 ML SYR SC SCH (11:47)
[2017-06-02] MEDS: VANCOMYCIN 500 MG in D5W 100 ML IV SCH (14:41)
--- NOTE | 2017-06-02 14:43 | PCMIDPN ---
Assessment/Plan: Assessment: Right lower extremity cellulitis. Erythema persists in the right lower extremity but looks like it is improved slightly. Still with significant swelling in the ankles and feet. Patient does not have any systemic symptoms. She does have underlying immunosuppression autoimmune disease which probably contributes to her proclivity to get soft tissue infection. It is unclear whether the excess edema of the lower extremity pre seeded the infection or is a result of the infection. Plan to continue vancomycin and observe for clinical improvement. I believe that her positive blood culture with aerococcus viridans is a contaminant due to lack of systemic symptoms and lack of growth of the 2nd set of blood cultures. Repeat trans thoracic echocardiogram done today shows uniform thickening of both the mitral and tricuspid valves which is in the opinion of the reading survey interviewer not consistent with endocarditis. At this point we will continue the IV antibiotic coverage with vancomycin given the uncertainty of aerococcus involvement in this whole presentation. Plan: 1. Continue IV vancomycin. 2. Follow clinical course. Subjective: Patient is in some distress transferring from the [facility] to her hospital bed after undergoing a repeat transthoracic echocardiogram this morning. She complains of foot pain. Redness is unchanged. No fevers or chills. Objective: Vancomycin # 1 Vital Signs Temp Pulse Resp BP Pulse Ox 36.9 C 85 20 102/47 L 94 06/02/17 11:13 06/02/17 11:13 06/02/17 11:13 06/02/17 11:13 06/02/17 11:13 Microbiology 05/30/17 11:25 Gram Stain - Final Foot - Eswab Wound Culture - Final Staphylococcus Aureus Laboratory Results 06/02/17 03:56 06/02/17 03:56 06/01/17 06/02/17 06/03/17 05:59 05:59 05:59 Intake Total 510 100 Output Total 2350 1120 Balance -1840 -1020 ESR 25 MM/HR (0-30) 05/31/17 04:01 C-Reactive Protein 55.0 mg/L (<10.0) H 05/31/17 04:01 - Physical Exam General Appearance: WD/WN, alert, no apparent distress, cachetic, non-toxic Respiratory: lungs clear, normal breath sounds, No respiratory distress Cardiac/Chest: regular rate, rhythm, No tachycardia Extremities: pedal edema, swelling, No non-tender, No normal inspection Skin: normal color, warm/dry, No rash ICD10 Worksheet Patient Problems: Problems Problem Status Onset Cellulitis of leg, right Acute chronic disease mgmt/transitional care Acute - ICD10 Problem Qualifiers (1) Cellulitis of leg, right
--- NOTE | 2017-06-02 18:30 | HOSPPROG ---
Hospitalist Progress Note Assessment/Plan: DIAGNOSES: -acute painful swelling and ulcerations of the skin at both ankles and feet, with cellulitis and stasis dermatitis both present, initially some petechial like lesions raising question of some type of a mean or vasculitic involvement -severe edema of both legs distally of uncertain duration -strongly suspect severe pulm HTN with echo showing severe tricuspid regurg and some right atrial enlargement -COPD suspected from secondhand smoke exposure with hyperexpansion on chest x- ray; bedside spirometry did not show a obstructive abnormality but the patient' s ability to perform the test adequately was questions by both herself and the motorcycle service technician -anemia, normocytic, is likely anemia of chronic disease and malnutrition, ferritin is actually in good range and I do not see evidence of iron deficiency anemia -severe protein calorie malnutrition -suspect a social phobia disorder/? 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 Rajiv Stout after previously reviewing yesterday with Dr. Janet Lara. I have also reviewed her case in detail today with Dr. Yulisa Turk who did her ISIDORO. Understanding the etiology of her acute illness and what part of her picture is chronic is very difficult. This patient essentially does not look at her body I believe probably due to some PTSD or similar issue. She is really not able to accurately portray whether she has chronic edema or skin abnormalities or not. Certainly her pain is new. She comes in with pain, stasis dermatitis, and initially described admission were some petechial like lesions, cellulitis, and some open ulcerations and bolus areas. I was not present for the 1st couple of days and I believe her exam has changed somewhat due to treatments here so far. What I have seen is evidence of definite edema and stasis dermatitis, which I suspect is likely largely chronic, resolving degree of cellulitis, and several full-thickness ulcerations but no current bullous disease during my 3 days with her. There are some dark macular lesions at 1 ankle the do not look terribly inflammatory to me, is unclear whether these were will was called possible petechial lesions or not. The do not necessarily look like petechia to me. They may potentially be related to her stasis disease. As I do see what looks like cellulitis and stasis disease with open wounds I believe she probably does have infectious cellulitis and that some of her wounds are probably infected and in fact we are growing a Staph aureus from 1 of the ulcers although the significance of that cultures not entirely clear. She has not had fevers or high white blood cell count, but does have a fairly high CRP. At the moment as I look at her picture overall I do not think this is likely an autoimmune or vasculitic process in her legs as was discussed in earlier notes, however she does have severe rheumatoid disease of her wrists and hands and has not had treatment for that disease over time. A blood culture did grow and aerococcus organism, and with echocardiograms initially the question of possible endocarditis and true bacteremia came up. This would be a very rare organism for human bacteremia. Her ISIDORO did not show actual vegetations. At this point whether not she has a true aerococcus bacteremia probably would only seem to me to indicate duration of antibiotic therapy, but she certainly I think needs staph coverage for her legs either way. In terms of the etiology of her edema I suspect is probably from chronic pulmonary hypertension as well as other causes. We are unable to get reliable bedside spirometry testing here due to her psychological issues. However her echo shows changes consistent with pulmonary hypertension related disease. PLANS: -continue antibiotics as per Infectious Disease recommendations, though I will try to have further review of this topic with Dr. Girish salinas -wound care -will resume diuresis in the morning, had held for her procedure today as she was unwilling to take them around the time of her procedure -she remains fairly reluctant to use nutrition supplements, again I have encouraged her to trying get nutrition supplements on board -will discontinue cardiac monitoring -continue ordering Lovenox for DVT prophylaxis though she is declining that; at this point I think her wounds make mechanical DVT prophylaxis problematic -physical occupational therapy as she will allow but she has difficulty working with them Patient with seen today with multidisciplinary rounds team in addition to hospitalist rounds SUBJECTIVE: Complains of ongoing leg and foot pain particularly her right foot Continues to complain of issues related to ordering food from the kitchen OBJECTIVE Vitals reviewed: Stable without fever 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, 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: Sinus Exam: alert oriented, quite anxious skin warm dry color ok resps not labored lungs diminished but otherwise clear BSs heart regular abd soft nondistended nontender, bowel sounds present limbs warm, slightly less edema from the upper calf down to the distal feet and quite a bit of severe stasis dermatitis, multiple open wounds on ankles and feet as described earlier, appear unchanged at this time; cellulitis mildly decreased iv site ok Lab data: Hemoglobin actually increased today at 11.5 CBC otherwise unremarkable Metabolic panel today with rising BUN potentially like to the to diuresis, otherwise unremarkable Sed rate is normal, CRP a bit elevated in the 50s, other serologic inflammatory markers are all normal so far Stool hemoccults negative Ferriti in good range Microbiology data: No new growth in blood cultures with aerococcus from 1 set Wound culture now with a Staph aureus, sensitive Transthoracic Echocardiogram: question of vegetation seen on mitral valve leaflets, preserved systolic function, no wall motion abnormalities, right atrial enlargement with severe tricuspid regurgitation semi pulmonary pressures not mentioned but presumably are high, mild mitral regurgitation Transesophageal echocardiogram: Uniform thickening and decreased movement of mitral valve leaflets with no obvious vegetation Objective: Vital Signs Temp Pulse Resp BP Pulse Ox 36.8 C 95 18 108/61 93 06/02/17 15:13 06/02/17 15:13 06/02/17 15:13 06/02/17 15:13 06/02/17 15:13 Laboratory Results 06/02/17 03:56 06/02/17 03:56 06/01/17 06/02/17 06/03/17 06:59 06:59 06:59 Intake Total 510 100 360 Output Total 2350 1120 450 Balance -1840 -1020 -90 PT 15.9 SEC (12.0-15.0) H 05/28/17 16:05 INR 1.25 (0.83-1.16) H 05/28/17 16:05 ICD10 Worksheet Patient Problems: Problems Problem Status Onset Cellulitis of leg, right [facility] Acute
[2017-06-03] MEDS: FUROSEMIDE 20 MG TAB PO SCH ×2 (08:23→14:45)
[2017-06-03] MEDS: ENOXAPARIN 30 MG/0.3 ML SYR SC SCH (08:23)
[2017-06-03] MEDS ORDERED: ALTEPLASE 2 MG VIAL IVP PRN (11:14)
--- NOTE | 2017-06-03 11:15 | PCMIDPN ---
Assessment/Plan: #Aerococcus bacteremia, ISIDORO less convincing for endocarditis --continue vancomycin 500mg IV daily based on Cr 34 and very low weight --check trough today --unclear significance of bacteremia, will hedge bets and treat for total of 14 days --PICC line discussed, wants to do it tomorrow. PICC line ordered --aerococcus universally susceptible to vancomycin, sensi were ordered to confirm # RLE cellulitis: much much improved, covered w vancomycin Meds vancomycin 500mg IV daily #3 05/28 blood cx 03/09 aerococcus virdans 06/02 blood cx (2) NGTD 05/30 RLE wound cx: MSSA Subjective: Patient is concerned about determining underlying cause of increased edema Brother was at bedside Complaining of left-sided abdominal pain when lifts her head Objective: Vital Signs Temp Pulse Resp BP Pulse Ox 36.6 C 97 12 101/55 L 93 06/03/17 07:21 06/03/17 07:21 06/03/17 07:21 06/03/17 07:21 06/03/17 07:21 Laboratory Results 06/02/17 03:56 06/02/17 03:56 06/02/17 06/03/17 06/04/17 05:59 05:59 05:59 Intake Total 100 710 Output Total 1120 850 Balance -1020 -140 ESR 25 MM/HR (0-30) 05/31/17 04:01 C-Reactive Protein 55.0 mg/L (<10.0) H 05/31/17 04:01 - Physical Exam General Appearance: alert, no apparent distress, cachetic EENT: No thrush Respiratory: normal breath sounds, No respiratory distress, No accessory muscle use Neck: supple Cardiac/Chest: regular rate, rhythm, systolic murmur Abdomen: non-tender, soft, No rebound Pelvic Exam: No sandoval Skin: pallor, No rash Neuro/Psych: alert, normal mood/affect, oriented x 3, other (Rapid fire tangential speech) - Time Spent With Patient Time Spent with Patient: greater than 35 minutes Time Spent with Patient: Greater than 35 minutes spent on this patients care, greater than 50% of time spent counseling, educating, and coordinating care regarding the above mentioned plan. ICD10 Worksheet Patient Problems: Problems Problem Status Onset Cellulitis of leg, right Acute chronic disease mgmt/transitional care Acute
[2017-06-03] MEDS: ASPIRIN 81 MG CHEWABLE TAB PO PRN ×3 (12:29→21:31)
--- NOTE | 2017-06-03 14:16 | HOSPPROG ---
Hospitalist Progress Note Assessment/Plan: * Aerococcus viridans bacteremia -ISIDORO negative for vegetation -IV Vanco - PICC in am * LE cellulitis - likely source of bacteremia * Pulm HTN - ? underlying COPD from second hand smoke -Lasix for edema -check ddimer * LE ulcerations due to venous stasis -wound care * Severe protein calorie malnutrition * RA - untreated - with severe deformity Subjective: No new complaints Objective: Vital Signs Temp Pulse Resp BP Pulse Ox 36.7 C 75 12 110/74 94 06/03/17 12:00 06/03/17 12:00 06/03/17 12:00 06/03/17 12:00 06/03/17 12:00 Laboratory Results 06/02/17 03:56 06/02/17 03:56 06/02/17 06/03/17 06/04/17 05:59 05:59 05:59 Intake Total 100 710 Output Total 1120 850 200 Balance -1020 -140 -200 PT 15.9 SEC (12.0-15.0) H 05/28/17 16:05 INR 1.25 (0.83-1.16) H 05/28/17 16:05 CXR viewed, my personal interpretation is - hyperexpanded case d/w Dr. Lara - plan for discharge with IV abx to SNF - Physical Exam Constitutional: no apparent distress, not in pain, chronically ill appearing, cachectic Cardiovascular: regular rate and rhythym, no murmur, rub, or gallop Respiratory: no respiratory distress, no rales or rhonchi, clear to auscultation Gastrointestinal: normoactive bowel sounds, soft, non-tender abdomen, no palpable masses Skin: warm, erythema, rash, other (LE erythema diffusely with ulceration, no purulence), No mottled, No induration Neurologic: AAOx3, sensation intact bilaterally Psychiatric: interacting appropriately, not encephalopathic, thought process linear, anxious ICD10 Worksheet Patient Problems: Problems Problem Status Onset Cellulitis of leg, right Acute chronic disease mgmt/transitional care Acute
[2017-06-03] MEDS: VANCOMYCIN 500 MG in D5W 100 ML IV SCH ×2 (14:27→14:45)
--- NOTE | 2017-06-03 15:13 | ASMTCMCOM ---
CM Note CM Note Notes: Pts case discussed in tx rounds. CM met w/ pt and brother for dispo planning. The plan remains the same. Pt will d/c to [facility] when medically stable. Pt is having a PICC line placed tomorrow. Pt will continue to be on iv vanco. CM notified [facility] of updates. CM scheduled pt w/ Dr. Frost per her request. Appointment is scheduled for 06/10/17 at 4:45Pm. CM to follow. Plan: [facility] Date Signed: 06/03/2017 03:12 PM Electronically Signed By:KARISHMA Payne
[2017-06-04] MEDS: ASPIRIN 81 MG CHEWABLE TAB PO PRN ×3 (02:06→15:57)
[2017-06-04] MEDS: VANCOMYCIN 500 MG in D5W 100 ML IV SCH ×2 (04:06→16:16)
[2017-06-04] MEDS: FUROSEMIDE 20 MG TAB PO SCH ×2 (09:11→15:57)
--- NOTE | 2017-06-04 14:46 | ASMTCMCOM ---
CM Note CM Note Notes: Pts case discussed in morning rounds. CM rescheduled pts PCP appointment for 06/28/17 @ 2:30PM. Pt will ideally attend this appointment after she completes her rehab at [facility]. CM sent updates to [facility]. Pt is awaiting to have a PICC line placed. Pt is resistant to having a PICC line at this time. CM to follow. Plan: [facility] Date Signed: 06/04/2017 02:46 PM Electronically Signed By:KARISHMA Payne
[2017-06-04 15:21] VITALS: BP 100/61; PULSE 91; RESP 18; TEMP 98.7; O2SAT 97
--- NOTE | 2017-06-04 15:47 | HOSPPROG ---
Hospitalist Progress Note Assessment/Plan: * Aerococcus viridans bacteremia -ISIDORO negative for vegetation -IV Vanco - PICC in am * LE cellulitis - likely source of bacteremia * Pulm HTN - ? underlying COPD from second hand smoke -Lasix for edema -check ddimer * LE ulcerations due to venous stasis -wound care * Severe protein calorie malnutrition * RA - untreated - with severe deformity Objective: Vital Signs Temp Pulse Resp BP Pulse Ox 37.1 C 91 18 100/61 97 06/04/17 15:18 06/04/17 15:18 06/04/17 15:18 06/04/17 15:18 06/04/17 15:18 Laboratory Results 06/02/17 03:56 06/02/17 03:56 06/03/17 06/04/17 06/05/17 05:59 05:59 05:59 Intake Total 710 1060 Output Total 850 750 Balance -140 310 PT 15.9 SEC (12.0-15.0) H 05/28/17 16:05 INR 1.25 (0.83-1.16) H 05/28/17 16:05 ICD10 Worksheet Patient Problems: Problems Problem Status Onset Cellulitis of leg, right Acute chronic disease mgmt/transitional care Acute
--- NOTE | 2017-06-04 15:48 | PDIAF ---
- Diagnosis Diagnosis: Right heart failure, cellulitis Code Status: Do Not Resuscitate - Medication Management Discharge Medications: Medications to Continue on Transfer Aspirin [Aspirin 81mg (*)] 20.25 mg PO Q3-4PRN PRN 05/28/17 [Last Taken Unknown] Cephalexin [Keflex (*)] 500 mg PO TID #21 cap 06/04/17 [Last Taken Unknown] Furosemide [Lasix 20 MG (*)] 20 mg PO DAILY #30 tab 06/04/17 [Last Taken Unknown ] Library Aide Antibiotic Stop Date: 06/11/17 Discharge Medications: Refer to the Discharge Home Medication list for PRN reason. 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 1. Clean gently with NS and gauze. 2. Wound gel to all wound beds. 3. Cover all wounds with Adaptic Touch contact layer (2 whole pieces). 4. Apply Mepilex foam to blistered area of right great toe. 5. Wrap entire foot with kerlix and secure with tape. Angy Antoine RN, Wound Care Team. Change dressings to left lower, lateral leg every 2 days and PRN. 1. Clean gently with NS and gauze. 2. Skin prep judie wound. 3. Therahoney gel to wound bed. 4. Cover with Allevyn Life. Angy Antoine RN, Wound Care Team - Follow Up Care Current Providers and Referrals: [facility] [Outside] - 06/28/17 2:30 pm (Appointment w/ Dr. Dario Frost Please come 20 mins prior to appointment, bring photo ID, insurance card, co pay and list of all medications. )
--- NOTE | 2017-06-04 15:52 | PCMIDPN ---
Assessment/Plan: Assessment: Right lower extremity cellulitis. Erythema persists in the right lower extremity but looks like it is improved slightly. Still with significant swelling in the ankles and feet. Patient does not have any systemic symptoms. She does have underlying immunosuppression autoimmune disease which probably contributes to her proclivity to get soft tissue infection. It is unclear whether the excess edema of the lower extremity pre seeded the infection or is a result of the infection. Plan to continue vancomycin and observe for clinical improvement. I believe that her positive blood culture with aerococcus viridans is a contaminant due to lack of systemic symptoms and lack of growth of the 2nd set of blood cultures. Repeat trans thoracic echocardiogram done today shows uniform thickening of both the mitral and tricuspid valves which is in the opinion of the reading pulp refiner operator not consistent with endocarditis. At this point I think it is reasonable to switch her to oral Keflex 500 mg p.o. three times daily for completion of 2 weeks of therapy. Plan: 1. Discontinue IV vancomycin and change to oral Keflex. Patient should complete a 2 week course total. 2. Discharge home. 06/04/17 15:50 Subjective: Patient is up on her feet walking around the room. Her speech is still pressured in her topics are still fast flowing. No fevers or chills. Objective: Vancomycin # 1 Vital Signs Temp Pulse Resp BP Pulse Ox 37.1 C 91 18 100/61 97 06/04/17 15:18 06/04/17 15:18 06/04/17 15:18 06/04/17 15:18 06/04/17 15:18 Laboratory Results 06/02/17 03:56 06/02/17 03:56 06/03/17 06/04/17 06/05/17 05:59 05:59 05:59 Intake Total 710 1060 Output Total 850 750 Balance -140 310 ESR 25 MM/HR (0-30) 05/31/17 04:01 C-Reactive Protein 55.0 mg/L (<10.0) H 05/31/17 04:01 - Physical Exam General Appearance: WD/WN, alert, no apparent distress, cachetic, non-toxic Respiratory: lungs clear, normal breath sounds, No respiratory distress Cardiac/Chest: regular rate, rhythm, No tachycardia Extremities: non-tender, normal inspection Skin: normal color, warm/dry, No rash Neuro/Psych: alert, normal mood/affect, oriented x 3 ICD10 Worksheet Patient Problems: Problems Problem Status Onset Cellulitis of leg, right Acute chronic disease mgmt/transitional care Acute - ICD10 Problem Qualifiers (1) Cellulitis of leg, right
[2017-06-04] MEDS ORDERED: CEPHALEXIN 250 MG CAP PO ONE (16:15)
[2017-06-04] MEDS: ENOXAPARIN 30 MG/0.3 ML SYR SC SCH (16:16)
--- NOTE | 2017-06-04 20:28 | GDS ---
[f rep st] DISCHARGE SUMMARY DISCHARGE DIAGNOSES: 1. Lower extremity cellulitis. 2. Aerococcus viridans. Blood culture positive, suspect contaminant. 3. Pulmonary hypertension, suspect due to underlying chronic obstructive pulmonary disease versus ky phosis, body habitus. 4. Lower extremity ulcerations due to venous stasis. 5. Severe protein-calorie malnutrition. 6. Severe untreated rheumatoid arthritis with deformity. HISTORY: The patient is a 72-year-old female who does not have a primary care doctor and has not [facility] medical care for many years. She clearly has untreated rheumatoid arthritis with extensive joint deformities. She takes ritl-cve-ltjntsk aspirin as needed. She presented with lower extremity nava a with skin breakdown and ulcerations and probable superimposed cellulitis. Blood cultures grew 1 ou t of 4 bottles Aerococcus viridans. ISIDORO was performed and negative for vegetation. Infectious Dorothy haq thinks this is likely a contaminant. She was treated with 1 week of IV antibiotics here in the spital, but given the fact we now feel relatively confident that this bacteremia was a contamination, we feel comfortable transitioning to oral antibiotics to complete a 2-week course of therapy for her lower extremity cellulitis. Her echocardiogram showed pulmonary hypertension. Lower extremity ultrasounds were negative for DVT. I suspect her pulmonary hypertension is due to a combination of COPD from secondhand smoke, as well as kyphosis and restrictive lung disease due to her body habitus. Her shortness of breath has resol edwin at discharge and she is on room air without any further complaints. She will continue on a daily Lasix dose, which can be titrated as an outpatient for effect. DISCHARGE MEDICATIONS: Please see computerized record for full detailed list. New medications: 1. Keflex 500 mg p.o. t.i.d. for 7 more days. 2. Lasix 20 mg p.o. daily. ADDITIONAL DISCHARGE INSTRUCTIONS: 1. Transfer to [facility] for further rehabilitation prior to discharge home. 2. She needs to establish as an outpatient with a primary care provider and has been referred to Dr. Dario Blanco upon discharge from [facility]. 3. Daily weights and recommend titrating Lasix dose up if her weight is increasing. 4. Wound care to bilateral lower extremities. 5. Detailed instructions per [employer] form. Greater than 30 minutes' time was spent arranging this discharge. Patient was seen and examined by carmella yee on day of discharge. /[id number]/MODL
--- NOTE | 2017-06-07 15:56 | ECHO ---
[email or web address] [address] [address] Main: [phone] Fax: Transesophageal Echocardiography Name: WENDY MOHR MR#: [id number] Study Date: 06/02/2017 Study Time: 09:14 AM Date of : 1945 Age: 72 year(s) Height: ( ) Weight: ( ) BSA: Gender: Female Examination: ISIDORO Indication: Eval for Valvular Vegetation Image Quality: Contrast: Requested by: Nicolette Jacobs Heart Rate: Rhythm: BP: / Procedure Staff Inverted Block Operator: Francisco Barrera RDCS Reading Physician: Ari Turk MD Requesting Provider: ISIDORO Exam Details Conclusions: Normal global systolic LV function. There is a pleural effusion present. ISIDORO images were obtained with pediatric probe. The anterior leaflet of the tricuspid valve is redudant and prolapsed with severe tricuspid regurgitation. No clear cut evidence of valvular vegetation but cannot be ruled out. The mitral valve appears mildly thickened and the aortic valve appears normal. While the patient was still under sedation transthorasic images were obtained due to patient tolerance of TTE.. Please see the dictated operative report for more data. Measurements: Chambers Valvular Assessment AV/MV Valvular Assessment TV/PV Normal Normal Normal Name Value Range Name Value Range Name Value Range TR Vmax: 2.99 mm/s ( - ) TR PGmax: 36 mmHg ( - ) syst. PAP: 46 mmHg ( - ) Additional Measurements: Valvular Assessment TV/PV Name Value CVP (est.): 10 mmHg Patient: WENDY MOHR Study Date: 06/02/2017 Page 1 of 2 09:14 AM Findings: Left Ventricle: Normal global systolic LV function. Left Atrium: An agitated saline study was performed and was negative for intracardiac shunting. Pericardium: There is a pleural effusion present. Exam Comments: ISIDORO images were obtained with pediatric probe. The anterior leaflet of the tricuspid valve is redudant and prolapsed with severe tricuspid regurgitation. No clear cut evidence of valvular vegetation but cannot be ruled out. The mitral valve appears mildly thickened and the aortic valve appears normal. While the patient was still under sedation transthorasic images were obtained due to patient tolerance of TTE.. l1n (No Signature Object) Patient: WENDY MOHR Study Date: 06/02/2017 Page 2 of 2 09:14 AM [id number]
== END 2017-06-04 17:05 | DRG 602 ==
LOC: F2W 18:34
PROVIDERS: ADMIT Internal Medicine; ATTEND Internal Medicine
PROC: B245ZZ4 Ultrasonography of Left Heart, Transesophageal (ICD-10-PCS; principal; 2017-06-02)
DX: L03.115 Cellulitis of right lower limb (principal); E43 Unspecified severe protein-calorie malnutrition; L03.116 Cellulitis of left lower limb; I83.018 Varicose veins of right lower extremity with ulcer other part of lower leg; I83.028 Varicose veins of left lower extremity with ulcer other part of lower leg; I27.21 Secondary pulmonary arterial hypertension; M06.9 Rheumatoid arthritis, unspecified; J44.9 Chronic obstructive pulmonary disease, unspecified; M40.209 Unspecified kyphosis, site unspecified; M32.9 Systemic lupus erythematosus, unspecified; I50.813 Acute on chronic right heart failure; D64.9 Anemia, unspecified; Z88.0 Allergy status to penicillin
CPT/HCPCS: 82607-90; 92523-GN; 97116-GP; 97162-GP; 97166-GO; 97530-GO; 97530-GP; 97535-GO; G8978-GP-CJ; G8979-GP-CI; G8987-GO-CJ; G8988-GO-CH; G9165-GN-CI; G9166-GN-CH; G9167-GN-CI; J0690; J1650; J2704; J2916; J3370

== ENCOUNTER 2017-07-25 13:30 | Inpatient (IN) | payer OTHER ==
--- NOTE | 2017-07-25 13:49 | EDPHY ---
H & P Time Seen by Provider: 07/25/17 13:33 HPI/ROS: CHIEF COMPLAINT: Right-sided chest pain HISTORY OF PRESENT ILLNESS: Patient is a 72-year-old female who presents emergency department via EMS from home with right-sided chest pain. The patient states her pain started 24 hr ago. It initially started on the left but now has moved to the right. For the past 12 hr it is been constant on the right side. She denies shortness of breath, cough or fever. She states it is positional. Worse when she lays back and better when she sits forward. She feels very fatigued. Patient was recently diagnosed with lower extremity cellulitis. She states that those symptoms are improving. She denies new leg pain or swelling. She denies previous history of SVT. REVIEW OF SYSTEMS: My complete review of systems is negative except as mentioned in the HPI. Past Medical/Surgical History: Includes lower extremity cellulitis, positive blood culture, pulmonary hypertension, extremity ulcerations with venous stasis, low calorie malnutrition , rheumatoid arthritis with deformity, eczema Social history: The patient is currently living at home. She was discharged from the hospital to [facility] for rehab. Smoking Status: Never smoked Physical Exam: Vitals noted. GENERAL: No acute distress, alert. HEENT: Eyes normal to inspection, normal pharynx, no signs of dehydration. NECK: [No thyromegaly, no lymphadenopathy, supple. RESPIRATORY: Clear to auscultation bilaterally, no rales, rhonchi or wheezing. CVS: Regular tachycardia, no rubs, murmurs, or gallops. ABDOMEN: Soft, nontender, nondistended, no organomegaly. BACK: Normal to inspection, no CVA tenderness. SKIN: Normal color, no rash, warm, dry. No pallor. EXTREMITIES: No pedal edema, no calf tenderness. Bilateral upper extremity deformity consistent with rheumatoid arthritis. NEURO/PSYCH: Alert and oriented x3, normal mood and affect, normal motor sensory exam. No obvious cranial nerve deficit. Constitutional: Initial Vital Signs Temperature (C) 38.1 C 07/25/17 13:38 Heart Rate 194 H 07/25/17 13:38 Respiratory Rate 20 07/25/17 13:38 Blood Pressure 130/87 H 07/25/17 13:38 O2 Sat (%) 96 07/25/17 13:38 O2 Delivery Mode Room Air Allergies/Adverse Reactions: clindamycin Allergy (Intermediate, Verified 07/25/17 13:35) Itching Penicillins Allergy (Mild, Verified 07/25/17 13:35) Rash Home Medications: Medication Instructions Recorded Aspirin [Aspirin 81mg (*)] 20.25 mg PO BID PRN 05/28/17 Furosemide [Lasix 20 MG (*)] 20 mg PO DAILY #30 tab 06/04/17 Medical Decision Making - Diagnostics Imaging Results: Imaging Impressions Chest X-Ray 07/25/17 14:00 Impression: Stable cardiomegaly. Mild left pleural effusion which has increased in size and minimal right pleural effusion. ED Course/Re-evaluation: In the emergency department I met EMS on arrival. Post EMS report from the stock preparation supervisor stated the patient was very difficult refused everything in route. She was upset that they performed an EKG. She was also upset that they placed an IV. She refused any medications. The stock preparation supervisor noted that she was in SVT. I personally evaluated the patient on her arrival. She was moderately confrontational and not cooperative with questioning. She was adamant that she see a production support consultant immediately. She was reluctant to answer my questions and requested that I review her medical record. The patient refused any medications until I review her medical record. I reviewed the patient's previous record. She was admitted on 05/28/2017. At that time she had bilateral lower extremity edema and stasis. She was treated for cellulitis. She was noted to have congestive heart failure. She was also noted to have severe protein calorie malnutrition. Per report, she had untreated rheumatoid arthritis. The patient was discharged on 06/04/2017 to the [facility] for rehab. The patient also had a consultation clinic visit with Dr. Josiah Gilmore. I discussed the review of the records with the patient. She states that she had seen Cardiology as an outpatient do not have that record in my system. Patient refused aspirin. She refused any medication. I recommended adenosine and explained her rhythm of SVT. Patient also states that she has had diarrhea for the past 2 weeks. Patient's white count is elevated at 10.6. Hematocrit is normal at 38.2. Platelets are 237. Patient's chemistry is notable for normal creatinine. Total bilirubin is elevated at 1.8. Conjugated bilirubin 0.8. Unconjugated bilirubin 1.0. AST and ALT are 42 and 36 respectively. Alk- phos is 123. Lipase is 308. INR is 1.43. PTT is elevated at 17.6. PTT is 28.8 Patient's troponin was elevated at 0.15. Patient's BNP is elevated at greater than 13,000. I discussed the results with the patient. I recommended cardioversion with adenosine. The patient agreed. The patient was transferred to room 2 in the emergency department. The patient consented to adenosine. I discussed the pros and cons. Patient was given adenosine 12 mg IV. The this caused good AV node pause. However, the patient went back into SVT. I reviewed the rhythm strips. A repeat dose of his eyes in 12 mg IV was given. Again, the patient experienced good AV pause. The patient went back into SVT. I discussed the results with the patient. I answered all her questions. Patient had no complaints of chest pain at this time. I discussed the case with Dr. Saunders. I also discussed the case with Dr. Mallory from Cardiology. He will evaluate the patient. 1535: I discussed case with Dr. Mallory. He recommended metoprolol 5 mg Q 5 min x3. This was ordered. Differential Diagnosis: My differential includes but is not limited to SVT, atrial dysrhythmia, ventricular dysrhythmia, electrolyte abnormality, sugar abnormality, ACS, acute TX, pericarditis, myocarditis, PE - Data Points Laboratory Results: Laboratory Results 07/25/17 14:03 07/25/17 14:03 07/25/17 07/25/17 07/25/17 14:03 14:03 14:03 WBC 10.62 10^3/uL H 10^3/uL (3.80-9.50) RBC 4.27 10^6/uL 10^6/uL (4.18-5.33) Hgb 12.4 g/dL L g/dL (12.6-16.3) Hct 38.2 % % (38.0-47.0) MCV 89.5 fL fL (81.5-99.8) MCH 29.0 pg pg (27.9-34.1) MCHC 32.5 g/dL g/dL (32.4-36.7) RDW 19.2 % H % (11.5-15.2) Plt Count 237 10^3/uL 10^3/uL (150-400) MPV 11.4 fL fL (8.7-11.7) Neut % (Auto) 78.0 % H % (39.3-74.2) Lymph % (Auto) 9.2 % L % (15.0-45.0) Cocke % (Auto) 12.1 % % (4.5-13.0) Eos % (Auto) 0.0 % L % (0.6-7.6) Baso % (Auto) 0.4 % % (0.3-1.7) Nucleat RBC Rel Count 0.0 % % (0.0-0.2) Absolute Neuts (auto) 8.28 10^3/uL H 10^3/uL (1.70-6.50) Absolute Lymphs (auto) 0.98 10^3/uL L 10^3/uL (1.00-3.00) Absolute Monos (auto) 1.29 10^3/uL H 10^3/uL (0.30-0.80) Absolute Eos (auto) 0.00 10^3/uL L 10^3/uL (0.03-0.40) Absolute Basos (auto) 0.04 10^3/uL 10^3/uL (0.02-0.10) Absolute Nucleated RBC 0.00 10^3/uL 10^3/uL (0-0.01) Immature Gran % 0.3 % % (0.0-1.1) Immature Gran # 0.03 10^3/uL 10^3/uL (0.00-0.10) PT 17.6 SEC H SEC (12.0-15.0) INR 1.43 H (0.83-1.16) APTT 28.8 SEC SEC (23.0-38.0) Sodium 139 mEq/L mEq/L (135-145) Potassium 4.9 mEq/L mEq/L (3.3-5.0) Chloride 98 mEq/L mEq/L (97-110) Carbon Dioxide 27 mEq/l mEq/l (22-31) Anion Gap 14 mEq/L mEq/L (8-16) BUN 26 mg/dL H mg/dL (7-23) Creatinine 0.7 mg/dL mg/dL (0.6-1.0) Estimated GFR > 60 Glucose 121 mg/dL H mg/dL (70-100) Calcium 9.0 mg/dL mg/dL (8.5-10.4) Total Bilirubin 1.8 mg/dL H mg/dL (0.1-1.4) Conjugated Bilirubin 0.8 mg/dL H mg/dL (0.0-0.5) Unconjugated Bilirubin 1.0 mg/dL mg/dL (0.0-1.1) AST 42 IU/L IU/L (14-46) ALT 36 IU/L IU/L (9-52) Alkaline Phosphatase 123 IU/L IU/L (38-126) Troponin I 0.153 ng/mL H ng/mL (0.000-0.034) NT-Pro-B Natriuret Pep 18098 pg/mL H pg/mL (0-125) Total Protein 7.4 g/dL g/dL (6.3-8.2) Albumin 3.8 g/dL g/dL (3.5-5.0) Lipase 308 IU/L H IU/L (23-300) Medications Given: Discontinued Medications Adenosine (Adenosine) 12 mg IVP ONCE ONE Stop: 07/25/17 14:54 Last Admin: 07/25/17 14:56 Dose: 12 mg Adenosine (Adenosine) 12 mg IVP ONCE ONE Stop: 07/25/17 15:00 Last Admin: 07/25/17 15:09 Dose: Not Given Aspirin (Aspirin) 324 mg PO EDNOW ONE Stop: 07/25/17 14:01 Last Admin: 07/25/17 14:11 Dose: Not Given Sodium Chloride (Ns) 500 mls @ 1,000 mls/hr IV EDNOW ONE PRN Reason: Protocol Stop: 07/25/17 14:29 Last Admin: 07/25/17 14:44 Dose: 500 mls Departure - Departure Disposition: [facility] Acute Clinical Impression: SVT (supraventricular tachycardia) Condition: Good
[2017-07-25] MEDS ORDERED: ASPIRIN 81 MG CHEWABLE TAB PO ONE (14:00)
[2017-07-25] MEDS ORDERED: NS 500 ML IV ONE (14:00)
[2017-07-25 14:07] LABS: PLATELET COUNT 237 10^3/uL (150-400)
[2017-07-25 14:16] LABS: INR 1.43 (0.83-1.16); PROTIME(PATIENT) 17.6 SEC (12.0-15.0)
[2017-07-25] MEDS ORDERED: ADENOSINE 6 MG/2 ML VIAL ONE ×2 (14:42→14:55)
[2017-07-25] MEDS: ADENOSINE 6 MG/2 ML VIAL IVP ONE ×2 (14:49→14:56)
--- NOTE | 2017-07-25 14:51 | CPEKG ---
Heart Rate: 191 RR Interval: 314 P-R Interval: 82 QRSD Interval: 82 QT Interval: 236 QTC Interval: 421 P [place]: 0 QRS [place]: 93 T Wave [place]: -87 EKG Severity - ABNORMAL ECG - EKG Impression: SUPRAVENTRICULAR TACHYCARDIA EKG Impression: REPOLARIZATION ABNORMALITY, PROB RATE RELATED Electronically Signed By: Paul Diaz 27-Jul-2017 06:07:03
[2017-07-25] MEDS ORDERED: ADENOSINE 6 MG/2 ML VIAL IVP ONE ×3 (14:59→22:51)
[2017-07-25] MEDS: METOPROLOL TARTRATE 5 MG/5 ML INJ IVP SCH ×3 (15:58→16:21)
[2017-07-25] MEDS ORDERED: ONDANSETRON 4 MG/2 ML VIAL IVP PRN (16:22)
[2017-07-25] MEDS ORDERED: ONDANSETRON DISINTEGRATING 4 MG TAB PO PRN (16:22)
[2017-07-25] MEDS ORDERED: ACETAMINOPHEN 325 MG TAB PO PRN (16:22)
[2017-07-25] MEDS ORDERED: IOPAMIDOL (ISOVUE 370) 100 ML BTL IV ONE (16:26)
--- NOTE | 2017-07-25 17:06 | PDCARCONS ---
Cardiology Consult Reason for Consult: Relatively refractory SVT (treated with adenosine in the ER X2 without cessation of the arrhythmia) Chief Complaint: Right sided chest pains Requesting Physician: ER/Hospitalist teams History of Present Illness: Patient is a 72 y/o female with history of rheumatoid arthritis (severe joint deformation noted), diastolic CHF (recently treated with lasix with resolution of edema noted), but no reports of HTN, HLP, CAD, or DM, who presents to ER with complaints of chest pains. Chest pains initially were noted to the left side, but migrated to the right side. When the right side of the chest became involved, there was more severe discomfort noted, and she opted to go to the ER. Review of outpatient notes from [facility] reveal a recent office note from Dr. Jada Mandujano (06/23/17), which was arranged after recent echocardiogram. Echocardiogram with mild reduction in LVEF noted (45-50%) with mild mitral regurgitation and mild to moderate tricuspid regurgitation. It sounds (from the patient and the office note) that a brief discussion about surgery for the tricuspid valve was undertaken, but given the patient's age and comorbidities, this was not felt to be a viable option. No history of arrhythmias was reported /discussed with that office visit. Patient not complaining of palpitations at present either, but on telemetry, she is tachy at 160 bpm in SVT. Given the SVT that was noted in the ER, two rounds of adenosine were given with short periods of sinus rhythm noted, prior to return to SVT. No complaints of fevers or chills. The patient has noted diarrhea. No dizziness or lightheadedness. No PND or orthopnea. Remainder of the 12 point review of systems was unremarkable. History Information - Allergies/Home Medication List Allergies/Adverse Reactions: clindamycin Allergy (Intermediate, Verified 07/25/17 13:35) Itching Penicillins Allergy (Mild, Verified 07/25/17 13:35) Rash Home Medications: Aspirin [Aspirin 81mg (*)] 20.25 mg PO BID PRN 05/28/17 [Last Taken 07/25/17] I have personally reviewed and updated: family history, medical history, social history, surgical history Past Medical History: - Past Medical History atrial fibrillation Additional medical history: rheumatoid arthritis - Surgical History Reports: no pertinent surgical hx - Family History Additional family history: parents were significant smokers. - Social History Smoking Status: Never smoked Tobacco Use: Secondhand Alcohol Use: None Drug Use: None Cardiac History - Cardiac History Cardiac Risk Factors: age > 65 Timing/Duration: Days Severity: mild Severity Scale: 6 Location: substernal (to the right side) Activities at Onset: activity Modifying Factors: improves with: lying down, oxygen, rest Associated Symptoms: chest pain GEOFFREY Risk Evaluation age greater or equal to 65: yes greater or equal to 3 CAD risk factors: no known CAD(stenosis greater or eqaul to 50%): no ASA use in past 7 days: yes severe angina(greater or equal to 2 episodes in 24hrs): no EKG ST changes greater or equal to 0.5mm: no positive cardiac marker: yes Total Score: 3 GEOFFREY Score: 13.2% risk Physical Exam Physical Exam: Temp Pulse Resp BP Pulse Ox 38.1 C 182 H 17 93/58 L 97 07/25/17 13:38 07/25/17 16:14 07/25/17 16:14 07/25/17 16:14 07/25/17 16:14 O2 (L/minute) 2 Constitutional: no apparent distress, cachectic Eyes: PERRL, EOMI Ears, Nose, Mouth, Throat: moist mucous membranes Cardiovascular: systolic murmur, pulses symmetric bilaterally, tachycardia, No JVD, No edema Peripheral Pulses: 2+: dorsalis-pedis (R), dorsalis-pedis (L) Respiratory: no respiratory distress, No expiratory wheeze, No respiratory distress Gastrointestinal: normoactive bowel sounds Skin: warm, rash (small rash to the LLE) Musculoskeletal: no muscle tenderness Neurologic: AAOx3, weakness, CN II-XII Intact Psychiatric: interacting appropriately, other (flight of ideas, difficult to stay focused on one question) Lab and Imaging 07/25/17 14:03 07/25/17 14:03 WBC 10.62 10^3/uL (3.80-9.50) H 07/25/17 14:03 RBC 4.27 10^6/uL (4.18-5.33) 07/25/17 14:03 Hgb 12.4 g/dL (12.6-16.3) L 07/25/17 14:03 Hct 38.2 % (38.0-47.0) 07/25/17 14:03 MCV 89.5 fL (81.5-99.8) 07/25/17 14:03 MCH 29.0 pg (27.9-34.1) 07/25/17 14:03 MCHC 32.5 g/dL (32.4-36.7) 07/25/17 14:03 RDW 19.2 % (11.5-15.2) H 07/25/17 14:03 Plt Count 237 10^3/uL (150-400) 07/25/17 14:03 MPV 11.4 fL (8.7-11.7) 07/25/17 14:03 Neut % (Auto) 78.0 % (39.3-74.2) H 07/25/17 14:03 Lymph % (Auto) 9.2 % (15.0-45.0) L 07/25/17 14:03 Irwin % (Auto) 12.1 % (4.5-13.0) 07/25/17 14:03 Eos % (Auto) 0.0 % (0.6-7.6) L 07/25/17 14:03 Baso % (Auto) 0.4 % (0.3-1.7) 07/25/17 14:03 Nucleat RBC Rel Count 0.0 % (0.0-0.2) 07/25/17 14:03 Absolute Neuts (auto) 8.28 10^3/uL (1.70-6.50) H 07/25/17 14:03 Absolute Lymphs (auto) 0.98 10^3/uL (1.00-3.00) L 07/25/17 14:03 Absolute Monos (auto) 1.29 10^3/uL (0.30-0.80) H 07/25/17 14:03 Absolute Eos (auto) 0.00 10^3/uL (0.03-0.40) L 07/25/17 14:03 Absolute Basos (auto) 0.04 10^3/uL (0.02-0.10) 07/25/17 14:03 Absolute Nucleated RBC 0.00 10^3/uL (0-0.01) 07/25/17 14:03 Immature Gran % 0.3 % (0.0-1.1) 07/25/17 14:03 Immature Gran # 0.03 10^3/uL (0.00-0.10) 07/25/17 14:03 PT 17.6 SEC (12.0-15.0) H 07/25/17 14:03 INR 1.43 (0.83-1.16) H 07/25/17 14:03 APTT 28.8 SEC (23.0-38.0) 07/25/17 14:03 Sodium 139 mEq/L (135-145) 07/25/17 14:03 Potassium 4.9 mEq/L (3.3-5.0) 07/25/17 14:03 Chloride 98 mEq/L (97-110) 07/25/17 14:03 Carbon Dioxide 27 mEq/l (22-31) 07/25/17 14:03 Anion Gap 14 mEq/L (8-16) 07/25/17 14:03 BUN 26 mg/dL (7-23) H 07/25/17 14:03 Creatinine 0.7 mg/dL (0.6-1.0) 07/25/17 14:03 Estimated GFR > 60 07/25/17 14:03 Glucose 121 mg/dL (70-100) H 07/25/17 14:03 Calcium 9.0 mg/dL (8.5-10.4) 07/25/17 14:03 Magnesium 2.1 mg/dL (1.6-2.3) 07/25/17 15:16 Total Bilirubin 1.8 mg/dL (0.1-1.4) H 07/25/17 14:03 Conjugated Bilirubin 0.8 mg/dL (0.0-0.5) H 07/25/17 14:03 Unconjugated Bilirubin 1.0 mg/dL (0.0-1.1) 07/25/17 14:03 AST 42 IU/L (14-46) 07/25/17 14:03 ALT 36 IU/L (9-52) 07/25/17 14:03 Alkaline Phosphatase 123 IU/L (38-126) 07/25/17 14:03 Troponin I 0.153 ng/mL (0.000-0.034) H 07/25/17 14:03 NT-Pro-B Natriuret Pep 69664 pg/mL (0-125) H 07/25/17 14:03 Total Protein 7.4 g/dL (6.3-8.2) 07/25/17 14:03 Albumin 3.8 g/dL (3.5-5.0) 07/25/17 14:03 Lipase 308 IU/L (23-300) H 07/25/17 14:03 Visualized and Interpreted Chest x-ray results: Yes Chest X-ray Interpretation: no infiltrate, normal heart size EKG Interpretation: Positive for: other (SVT with rates of 160 bpm) Telemetry: Ongoing SVT Echocardiogram: from 06-02-17, LVEF was noted to be 45-50% with mild MR, and mild/mod TR A/P Assessment: Trial with Adenosine in the ER did not successfully reestablish normal sinus rhythm. Brief discussion with EP suggested the use of IV beta blockers, then start oral beta blockers (low dose given the hypotension that was noted upon arrival). Would maintain mild IV fluids (no more than 500 mL more at this point ). Would start low dose metoprolol tartrate (25 mg PO QHS) this evening. Electrolyte reassessment given reports of "diarrhea" Echocardiogram was recently performed in May this year. Would not pursue repeat echocardiogram at this time. Would follow serial troponins given the mild elevation noted. Patient did just return from the CT scanned, and imaging results are pending. Ensure thyroid assessment has been completed within the past 6-12 months Cardiology will continue to follow this patient. Will discuss with EP should the patient continue to manifest the noted SVT. Uncertain on how long she has been in this rhythm, but the patient is maintaining blood pressures and having conversations without difficulty.
--- NOTE | 2017-07-25 17:24 | GHP ---
[f rep st] HISTORY AND PHYSICAL DATE OF ADMISSION: 07/25/2017 CHIEF COMPLAINT: Chest pain, dizziness. HISTORY OF PRESENT ILLNESS: This is a 72-year-old female, who is a fairly difficult historian, flat tangential speaking. She was admitted to the hospital in late May for lower extremity cellulitis a nd edema. She was treated with antibiotics. There was a question of endocarditis at that time, but it was felt that this was a contaminant. She was sent to [facility] on Lasix and antibiotics. She s tates that when she got to [facility], she developed diarrhea. In early June, she developed diarrhe a and had it ever since. Sometimes, it is difficult to control. She is also urinating a lot due to her Lasix. She feels that she is dehydrated. Two days ago, she had the sudden-onset of right-sided pleuritic chest pain. She then also developed dizziness and heart palpitations. She is currently in SVT. She no longer has lower extremity swelling. She does have a history of severe, what looks lik e rheumatoid arthritis with significant deformities. She denies any abdominal pain. REVIEW OF SYSTEMS: A 10-point review of systems was obtained and those were negative. PAST MEDICAL HISTORY: 1. Probable rheumatoid arthritis, although her rheumatoid factor is negative with significant deform ities. 2. Eczema. 3. Recent lower extremity cellulitis and ulcerations due to venous stasis. 4. Probable COPD and pulmonary hypertension. MEDICATIONS: Reviewed. She was placed on Keflex for her cellulitis. SOCIAL HISTORY: No smoking, although she did have significant secondhand smoke exposure. She is [email or web address] [email or web address] from [place]. 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 She has a boyfriend in [place]. FAMILY HISTORY: Mother of CHF and COPD. PHYSICAL EXAM: VITAL SIGNS: Afebrile, blood pressure 73/58, heart rate 180, oxygen saturation 97% o n room air. GENERAL: The patient is thin and fragile-appearing and in no apparent distress. HEENT: Nonicteric sclerae. Extraocular movements intact. Dry mucous membranes. NECK: Supple. No thyro megaly. LUNGS: Good effort. Clear to auscultation bilaterally. CARDIOVASCULAR: Tachycardic, but regular. ABDOMEN: Positive bowel sounds. Soft. No tenderness. No right upper quadrant tenderness . Negative Enriquez's. EXTREMITIES: No clubbing, cyanosis, or edema. Significant joint deformities. NEUROLOGIC: Alert and oriented x3. Moving all 4 extremities equally. PSYCH: Normal affect. LABS: White blood cell count slightly elevated at 10, hemoglobin is normal. Chemistries normal. To clifton bilirubin is up at 1.8 with a conjugated at 0.8. Troponin is positive at 0.153. BNP 29187. Lip ase slightly elevated at 308. Chest x-ray, personally reviewed and interpreted, shows cardiomegaly, worsening left pleural effusion, minimal right pleural effusion. EKG, personally reviewed and interp reted. shows SVT. ASSESSMENT: This is a 72-year-old female, presenting with supraventricular tachycardia, pleuritic ch est pain. 1. Supraventricular tachycardia: She does not have a previous history of this. She has been given adenosine, which has not broken the heart rhythm. Cardiology saw the patient, and they were in the m idst of giving IV metoprolol. I am not sure, I think the cause may be multifactorial. She does give a history that would support dehydration as she has been on Lasix and has had diarrhea. We will giv e a little bit of fluid, but with her high heart rate, we do not want to cause respiratory problems w ith fluid overload. 2. Right-sided pleuritic chest pain with new-onset supraventricular tachycardia: Will need to rule out pulmonary embolism. We will check a CT angiogram. 3. Diarrhea: We will check a GI pathogen panel, though she believes this may be due to her Lasix. I suspect she does not need to be on daily Lasix and may switch this as needed. 4. Rheumatoid arthritis: This looks like it was burned out, may be explaining her negative rheumato id factor. /[id number]/MODL
--- NOTE | 2017-07-25 17:46 | PDMN ---
Medical Necessity Medical necessity: C/M review: est. > 2 MN LOS for eval and TX of acute and persistent supraventricular tachycardia , right sided pleuritic chest pain, diarrhea, requiring IV Adenosine given in ED which has not broken the heart rhythm then IV Metoprolol given in ED, IV fluids, ongoing cardiac monitoring, pulse oximetry, comorbid history of 05/2017 hospitalization for lower extremity cellulitis and edema treated with antibiotics, history of probable rheumatoid arthritis although rheumatoid factor is negative with significant deformities, eczema, recent lower extremity cellulitis and ulcerations due to venous stasis, probable COPD and pulmonary hypertension per H/P.
[2017-07-25] MEDS: NS 1,000 ML IV SCH (18:01)
[2017-07-25] MEDS: ASPIRIN 81 MG CHEWABLE TAB PO PRN ×2 (18:54→23:25)
[2017-07-25] MEDS: METOPROLOL TARTRATE 25 MG TAB PO SCH (19:01)
[2017-07-25] MEDS ORDERED: METOPROLOL TARTRATE 25 MG TAB PO ONE (23:47)
--- NOTE | 2017-07-25 23:52 | HOSPPROG ---
Hospitalist Progress Note Assessment/Plan: Hospitalist Night Float Note Patient with multiple IV access issues veins blown after flushing. reliable IV access finally obtained and 6mg IV adenosine given x 1. (3rd dose received, after IV metoprolol and PO 25mg). SBP 80s-90s but appears unchanged from admission. Spoke with Dr. Shawnee kennedy given additional 25mg dose metoprolol PO. VS reviewed. no acute changes in respiratory status. Cards will see in AM. Objective: Vital Signs Temp Pulse Resp BP Pulse Ox 36.9 C 168 H 18 83/69 L 92 07/25/17 23:01 07/25/17 23:01 07/25/17 23:01 07/25/17 23:01 07/25/17 23:01 07/24/17 07/25/17 07/26/17 05:59 05:59 05:59 Intake Total 500 Balance 500 PT 17.6 SEC (12.0-15.0) H 07/25/17 14:03 INR 1.43 (0.83-1.16) H 07/25/17 14:03 ICD10 Worksheet Patient Problems: Problems Problem Status Onset SVT (supraventricular tachycardia) Acute Cellulitis of leg, right Acute chronic disease mgmt/transitional care Acute
[2017-07-26 05:06] LABS: PLATELET COUNT 223 10^3/uL (150-400)
--- NOTE | 2017-07-26 10:36 | PDCARPN ---
Cardiology Progress Note Chief Complaint: No cardiovascular complaints voiced this morning. Assessment/Plan: Assessment: Patient is a 72 y/o female with history of severe rheumatoid arthritis and diastolic CHF, who presented to [facility] with complaints of chest tightness/pain and dyspnea. ECG/telemetry with SVT noted to rates of 160-170 bpm. Attempts with adenosine in the ER were unsuccessful with termination of the arrhythmia. Curbside with EP yesterday recommended low dose beta blockers, and this therapy seems to have assisted with termination of the SVT. Patient with complaints about many things this morning, but no complaints about her current medical condition. I did speak with EP (Dr. Jada Diaz) about getting a consult rendered, but much of the interaction between EP and patient will be driving by the patient's allowances. Plan: (1) Would continue therapy on lower dose beta herb (12.5 mg twice per day) for assistance with rate/rhythm control more than blood pressure (2) Patient was recently seen by Dr. Jada Mandujano, and recommendations were against more invasive measures (specifically surgical intervention to the tricuspid valve, which I agree with completely), but the patient seems to have taken the word "surgery" to mean anything that physicians might do Subjective: No active cardiovascular complaints. Chest pains/pressure that had been noted is no longer an issue. Reviewed/Discussed With: hospitalist Objective: Vital Signs (8 Hrs) Temp Pulse Resp BP Pulse Ox 07/26/17 07:19 37.7 C 80 20 94/49 L 94 07/26/17 04:00 37.2 C 95 20 91/54 L 92 Intake/Output (24 Hrs) 07/25/17 07/26/17 07/27/17 05:59 05:59 05:59 Intake Total 1480 Output Total 900 225 Balance 580 -225 Intake: Oral (ml) 300 IV Infused (ml) 1180 Ns 1,000 ml @ 75 mls/hr 680 IV CONT VIKTOR Rx#: [id number] Output: Urine (ml) 900 225 Bedside Commode 100 Toilet 900 125 Other: Weight 34.6 kg Number of Voids Toilet 2 Result Diagrams: 07/26/17 03:54 07/26/17 03:54 Cardiac Labs: Cardiac Lab Results (72 Hrs) 07/26/17 03:54 Troponin I 1.690 H Telemetry: normal sinus rhythm - Physical Exam Constitutional: no apparent distress, cachectic Eyes: PERRL, EOMI Ears, Nose, Mouth, Throat: moist mucous membranes Cardiovascular: regular rate and rhythm, systolic murmur, pulses symmetric bilat , No jugular vein distention Peripheral Pulses: 2+: dorsalis-pedis (R), dorsalis-pedis (L) Respiratory: clear to auscultate bilat, no crackles, no wheezes Gastrointestinal: No tenderness Skin: no rashes Musculoskeletal: no muscular tenderness Neurologic: AAOx3, CN II-XII grossly intact Psychiatric: cooperative, interactive, following commands, depressed ICD10 Worksheet Patient Problems: Problems Problem Status Onset SVT (supraventricular tachycardia) Acute Cellulitis of leg, right Acute chronic disease mgmt/transitional care Acute
[2017-07-26] MEDS: ASPIRIN 81 MG CHEWABLE TAB PO PRN ×3 (11:13→20:28)
[2017-07-26] MEDS: METOPROLOL TARTRATE 25 MG TAB PO SCH ×2 (11:14→19:36)
[2017-07-26] MEDS ORDERED: MAGNESIUM HYDROXIDE 30 ML UDCUP PO PRN (11:31)
[2017-07-26] MEDS: NS 1,000 ML IV SCH (12:17)
--- NOTE | 2017-07-26 16:07 | HOSPPROG ---
Hospitalist Progress Note Assessment/Plan: # Acute SVT - on admission - HR markedly elevated in the 190's treated with adenosine TELE (personally reviewed and interpreted) converted to sinus overnight - sinus 80's oxygen saturations 95% on RA - creatinine normal 0.8 - continue metoprolol 25mg BID - monitor overnight for recurrence of SVT # Hypotension - chronic -SBP appears stable in the 80-90's - monitor on metoprolol # severe protein calorie malnutrition - BMI 14 - encourage PO # proph - Lovenox # dispo - tomorrow if remains stable I have discussed the case with Cardiology - will give metoprolol to suppress recurrent SVT - EP consulted Subjective: feels terrible Objective: Vital Signs Temp Pulse Resp BP Pulse Ox 37.0 C 89 14 101/54 L 95 07/26/17 12:00 07/26/17 12:00 07/26/17 12:00 07/26/17 12:00 07/26/17 12:00 Laboratory Results 07/26/17 03:54 07/26/17 03:54 07/25/17 07/26/17 07/27/17 05:59 05:59 05:59 Intake Total 1480 Output Total 900 425 Balance 580 -425 PT 17.6 SEC (12.0-15.0) H 07/25/17 14:03 INR 1.43 (0.83-1.16) H 07/25/17 14:03 - Physical Exam Constitutional: cachectic Eyes: anicteric sclera Ears, Nose, Mouth, Throat: dry mucous membranes Cardiovascular: regular rate and rhythym Respiratory: no respiratory distress Gastrointestinal: normoactive bowel sounds Genitourinary: no bladder fullness Skin: warm Musculoskeletal: No asymmetric calves Neurologic: AAOx3 Psychiatric: agitated Lymph, Heme, Immunologic: no cervical LAD ICD10 Worksheet Patient Problems: Problems Problem Status Onset SVT (supraventricular tachycardia) Acute Cellulitis of leg, right Acute chronic disease mgmt/transitional care Acute
--- NOTE | 2017-07-26 16:48 | ASMTCMCOM ---
CM Note CM Note Notes: Pt admitted with SVT. Pt here recently & was discharged to [facility]. Spoke with RN; pt has been home now for a couple weeks. Pt normally lives alone & has a 90 year old boyfriend, Vern, that lives in [place] & is unable to provide pt care. Pt also has a friend, Donta, that lives locally & occasionally helps pt. During last admission, CM provided pt with clothes & information on outpatient counseling. PT ordered; awaiting eval. OT recommending home vs C; please see OT note from 07/25 regarding pt's living situation. RN reports similair concerns; request to contact APS. APS ([phone]); contacted; spoke with Carol; report taken; CM to callback tomorrow & see if case has been assigned. CM will follow. Dc plan-TBD Date Signed: 07/26/2017 04:47 PM Electronically Signed By:Natalya Reed RN
[2017-07-26] MEDS: VANCOMYCIN 125 MG/2.5 ML UDL PO SCH ×2 (19:36→20:30)
[2017-07-27] MEDS: VANCOMYCIN 125 MG/2.5 ML UDL PO SCH ×2 (05:12→13:20)
[2017-07-27] MEDS: METOPROLOL TARTRATE 25 MG TAB PO SCH (07:47)
[2017-07-27] MEDS: ASPIRIN 81 MG CHEWABLE TAB PO PRN (07:47)
--- NOTE | 2017-07-27 09:52 | ASMTCMCOM ---
CM Note CM Note Notes: 07/27/2017 Case Management Note Phone call from APS team, conference call led by Jason Shore. APS requested cog eval to help determine if pt has decisional capacity. APS will not be involved unless MD states that pt is no longer decisional. Notified RN. Faxed referral to [facility] requesting services of behavioral health RN in addition to PT and OT. Case Management d/c poc: To be determined. Home Care vs SNF rehab. Case Management to follow. Date Signed: 07/27/2017 09:51 AM Electronically Signed By:Ana Olivas RN
--- NOTE | 2017-07-27 10:32 | PDIAF ---
- Diagnosis Diagnosis: svt - cdiff Code Status: Do Not Resuscitate - Medication Management Discharge Medications: Medications to Continue on Transfer Aspirin [Aspirin 81mg (*)] 20.25 mg PO BID PRN 05/28/17 [Last Taken 07/25/17] Furosemide [Lasix 20 MG (*)] 20 mg PO DAILY #30 tab 06/04/17 [Last Taken ] Metoprolol Tartrate [Lopressor 25 mg (*)] 25 mg PO BID #60 tab 07/27/17 [Last Taken Unknown] Vancomycin [Vancocin Oral Liquid] 125 mg PO QID #48 udl 07/27/17 [Last Taken Unknown] Discharge Medications: Refer to the Discharge Home Medication list for PRN reason. - Orders Services needed: Home Care, Registered Nurse Home Care Face to Face: I certify that this patient was under my care and that I had the required [id number] encounter meeting the encounter requirements on the discharge day. My findings support the fact that the patient is homebound as defined in Home Care Face to Face Continued: CMS Chapter 7 Medicare Benefits Manual 30.1.1 , The condition of the patient is such that there exists a normal inability to leave home and consequently, leaving home would require a considerable and taxing effort. Isolation Type: CDIFF Isolation Diet Recommendation: no restrictions on diet Diet Texture: Regular Texture Diet Additional Instructions: please hold lasix while you are having diarrhea - restart when antibiotics are complete please follow with [facility] for consultation on your fast heart rhythm - Follow Up Care Current Providers and Referrals: Patient,NotPresent [Unknown] - As per Instructions Paul Diaz MD [Medical Doctor] -
--- NOTE | 2017-07-27 10:39 | PDCARPN ---
Cardiology Progress Note Chief Complaint: Patient with complaints of dizziness and head ache today. Diagnosis of "C. Diff " rendered after stool culture results posted. Assessment/Plan: Assessment: 07-27-17 Patient with complaints of both dizziness and head aches today. Poor sleep has been noted. No chest pains or pressure. Patient, on one had, states that she is dehydrated, and on the other, states that she has edema (there is no edema noted at present). SVT presence led to EP request for consult, but when the EP physician came by yesterday, she refused given need to sleep. Ideas continue to be flighty. Patient with concerns about return of edema given the hold on the lasix that was implemented with her diarrhea complaints and lack of heart failure signs. 07-26-17 Patient is a 72 y/o female with history of severe rheumatoid arthritis and diastolic CHF, who presented to [facility] with complaints of chest tightness/pain and dyspnea. ECG/telemetry with SVT noted to rates of 160-170 bpm. Attempts with adenosine in the ER were unsuccessful with termination of the arrhythmia. Curbside with EP yesterday recommended low dose beta blockers, and this therapy seems to have assisted with termination of the SVT. Patient with complaints about many things this morning, but no complaints about her current medical condition. I did speak with EP (Dr. Jada Diaz) about getting a consult rendered, but much of the interaction between EP and patient will be driving by the patient's allowances. Plan: (1) Outpatient consult with EP (Dr. Jeremiah Romano) for the SVT that was noted (2) Would continue low dose beta herb (12.5 mg twice per day) for rhythm control (3) Oral vanco for the C. Diff diagnosis has been started Subjective: Head ache and dizziness Reviewed/Discussed With: hospitalist Objective: Vital Signs (8 Hrs) Temp Pulse Resp BP Pulse Ox 07/27/17 07:29 37.3 C 94 16 106/61 88 L 07/27/17 04:00 36.6 C 79 17 98/51 L 94 Intake/Output (24 Hrs) 07/26/17 07/27/17 07/28/17 05:59 05:59 05:59 Intake Total 1480 1700 Output Total 900 1275 Balance 580 425 Intake: Oral (ml) 300 900 IV Infused (ml) 1180 800 Ns 1,000 ml @ 75 mls/hr 680 800 IV CONT VIKTOR Rx#: [id number] Output: Urine (ml) 900 1175 Bedside Commode 300 Toilet 900 875 Liquid Stool (ml) 100 Toilet 100 Other: Weight 34.6 kg Intake Quantity Yes Sufficient Number of Voids Toilet 2 1 Number of Stools Bedside Commode 1 Toilet 1 Result Diagrams: 07/26/17 03:54 07/27/17 04:04 Cardiac Labs: Cardiac Lab Results (72 Hrs) 07/27/17 07/26/17 04:04 03:54 Troponin I 0.647 H 1.690 H Telemetry: normal sinus rhythm - Physical Exam Constitutional: cachectic Eyes: PERRL, EOMI Ears, Nose, Mouth, Throat: moist mucous membranes Cardiovascular: regular rate and rhythm, systolic murmur, pulses symmetric bilat , No jugular vein distention Peripheral Pulses: 2+: dorsalis-pedis (R), dorsalis-pedis (L) Respiratory: clear to auscultate bilat Gastrointestinal: normoactive bowel sounds Skin: no edema Musculoskeletal: no muscular tenderness Neurologic: AAOx3, CN II-XII grossly intact Psychiatric: cooperative, interactive, following commands ICD10 Worksheet Patient Problems: Problems Problem Status Onset SVT (supraventricular tachycardia) Acute Cellulitis of leg, right Acute chronic disease mgmt/transitional care Acute
[2017-07-27 11:46] VITALS: BP 126/81
--- NOTE | 2017-07-27 15:54 | ASMTLACE ---
LACE Length of stay for Answers: 2 days current admission Acuity / Level of Answers: Yes Care: Did the patient have an inpatient admission? Comorbidities - select Answers: Chronic pulmonary disease all that apply Other Notes: Pulm HTN # of Emergency department Answers: 1-2 visits in the last 6 months Social determinants Answers: Lack of community resources and/or lack of social support (no pcp, lives alone, transportation, cort[place] d) Score: 13 Date Signed: 07/27/2017 03:54 PM Electronically Signed By:Ana Olivas RN
--- NOTE | 2017-07-27 16:08 | ASDISCHSUM ---
Discharge Information Plan Status:Home with Home Health Medically Cleared to Leave:07/27/2017 Discharge Date:07/27/2017 02:57 PM D/C Disposition:Home, Routine, Self-Care ADT D/C Disposition:Home Health Service Projected Discharge Date:07/28/2017 11:00 AM Transportation at D/C:Family Discharge Delay Reason: Follow-Up Date:07/28/2017 11:00 AM Discharge Slot: Final Diagnosis: Placement Information Referral Type:*Home Health Care Services Referral ID:[id number] Provider Name:[facility] Address 1:[address] [address] Address 2: City:[place] Selection Factors: State:[place] Referral Type:Palliative Care Referral ID:[id number] Provider Name:[facility] Address 1:[address] [place] Phone Number: Address 2: Fax Number: [facility]:[place] Selection Factors: State:[place] Patient Contact Information Contact Name:MARY Relationship:Other Address: Work Phone: City:[place] Alternate Phone: [facility]/Zip Code:[place] Email: Financial Information Financial Class:Medicare Primary Plan Desc:MEDICARE INPATIENT Primary Plan Number:[id number] Secondary Plan Desc:[facility] Secondary Plan Number:[id number] Assessment Information LACE LACE Length of stay for Answers: 2 days current admission Acuity / Level of Answers: Yes Care: Did the patient have an inpatient admission? Comorbidities - select Answers: Chronic pulmonary disease all that apply Other Notes: Pulm HTN # of Emergency department Answers: 1-2 visits in the last 6 months Social determinants Answers: Lack of community resources and/or lack of social support (no pcp, lives alone, transportation, [place] d) Score: 13 Date Signed: 07/27/2017 03:54 PM Electronically Signed By:Ana Olivas RN [facility] CM Progress Note CM Note CM Note Notes: Pt admitted with SVT. Pt here recently & was discharged to [facility]. Spoke with RN; pt has been home now for a couple weeks. Pt normally lives alone & has a 90 year old boyfriend, Vern, that lives in [place] & is unable to provide pt care. Pt also has a friend, Donta, that lives locally & occasionally helps pt. During last admission, CM provided pt with clothes & information on outpatient counseling. PT ordered; awaiting eval. OT recommending home vs HHC; please see OT note from 07/25 regarding pt's living situation. RN reports similair concerns; request to contact APS. APS ([phone]); contacted; spoke with Carol; report taken; CM to callback tomorrow & see if case has been assigned. CM will follow. Dc plan-TBD Date Signed: 07/26/2017 04:47 PM Electronically Signed By:Natalya Reed RN [facility] Progress Note CM Note CM Note Notes: 07/27/2017 Case Management Note Phone call from APS team, conference call led by Jason Shore. APS requested cog eval to help determine if pt has decisional capacity. APS will not be involved unless states that pt is no longer decisional. Notified RN. Faxed referral to [facility] requesting services of behavioral health RN in addition to PT and OT. Case Management d/c poc: To be determined. Home Care vs SNF rehab. Case Management to follow. Date Signed: 07/27/2017 09:51 AM Electronically Signed By:Ana Olivas RN Case Management Discharge Plan Note Case Management Discharge Discharge Order Complete? Answers: Yes Patient to Obtain Answers: via Family Medications Transportation Arranged Answers: Family/Friends Faxed Final Orders Answers: Yes Agency/Facility Transfer Answers: Yes Report Printed & Faxed to Receiving Agency Discharge Comments Notes: 07/27/2017 Case Management Note Pt visited with Yaya from [facility]. Home Care to start on Friday 07/28. Faxed final orders. PCP is Dr Esthela Gordillo with [facility]. Palliative care set up through [email or web address]. Faxed final orders. Pt refused meals on wheels. Pt brother Ishan drove pt home. Pt could benefit from psych eval at next admission to determine how underlying suspected psych issues are impacting her ability to care for herself in the home environment. APS will not open case because pt is considered decisional. Date Signed: 07/27/2017 04:07 PM Electronically Signed By:Ana Olivas RN Intervention Information
--- NOTE | 2017-07-27 18:24 | GDS ---
[f rep st] DISCHARGE SUMMARY DISCHARGE DIAGNOSES: Include: 1. Supraventricular tachycardia converted back to sinus rhythm. 2. Acute Clostridium difficile colitis. 3. Severe protein calorie malnutrition. 4. Hypotension, baseline. HISTORY OF PRESENT ILLNESS: This is a 72-year-old female with severe protein calorie malnutrition, w ho presents with SVT. For details of patient's initial presentation, please see the history and phys ical dated 07/25/2017. CONSULTATIVE SERVICES: Cardiology. HOSPITAL COURSE BY ISSUE: 1. Acute SVT. Patient received treatment on initial arrival with adenosine and did break back into sinus rhythm. She was initiated on metoprolol 25 mg p.o. twice daily and remained in sinus rhythm wi th controlled rates in the 70s to 90s. She has been instructed to continue this medication at [facility]. The bending machine set up operator attempted to consult during her hospital stay. She refused to see dusitn weir. She will follow in the outpatient setting with Electrophysiology. 2. C difficile colitis. Patient presented with complaints of chronic diarrhea. A stool pathogen cooper moreno was positive for C difficile. She was initiated on p.o. vancomycin. In the 24 hours prior to reginaldo espinosa, she had only 3 stools. Patient is tolerating p.o. intake and will complete a 14-day course of p.o. vancomycin. MEDICATIONS AT THE TIME OF TRANSFER: Please reference the med rec printed on 07/27/2017. FOLLOWUP APPOINTMENTS: Include with Electrophysiology, as well as with her primary care. RESULTS PENDING AT THE TIME OF THIS DICTATION: None. I spent greater than 30 minutes in the planning and coordination of this discharge. /[id number]/MODL
--- NOTE | 2017-07-30 16:09 | ASMTCMCOM ---
CM Note CM Note Notes: 07/30/2017 Case Management Note Multiple phone calls from pt today expressing frustration with scheduling from [facility]. Contacted Yaya from [facility], per Yaya her RN's attempted multiple times to set an appointment but pt was unwilling to committ to a specific time. Encouraged Yaya to give pt 2 options to choose from as pt has difficulty processing information without wandering off topic. Pt was tangential in thinking today but was able to focus when limits were set. Pt had meeting today with [facility]. Per pt Savannah from [facility] had initial intake appointment and set follow up appointment on . Per pt, Jerri provided phone numbers for pt to contact her in the meantime if needed. Follow up call from Mar. [facility] RN Jihan to call pt between 8 and 9 am tomorrow to set appointment to see Jennyfer tomorrow. Jennyfer concerned she was violating Medicare rules by having 2 agencies seeing her. Explained that Palliative care is different than home care and she was not in violation of Medicare rules. Case Management helped Jennyfer strategize and problem solve if symptoms return. Encouraged Jennyfer to contact Dr. Blanco's office for appointment to set up as powerhouse tender. Jennyfer has seen Dr. Blanco in the past. Jennyfer also has phone number for physician's account relationship manager (an MD will come to the home) set up by [facility] at d/c. Encouraged Jennyfer to contact [facility] RN if needed. Reminded Jennyfer that if necessary, urgent care or the emergency room can assess her as well. Encouraged Jennyfer to use a Taxi or call her brother if a ride is required. Reminded Jennyfer that 911 is also an option if she is unwell. Reminded Jennyfer that since she is discharged from [facility], case management is unable to provide care for her and encouraged her to use the resources set up for her at d/c. Date Signed: 07/30/2017 04:08 PM Electronically Signed By:Ana Olivas RN
--- NOTE | 2017-08-05 16:17 | ASMTCMCOM ---
CM Note CM Note Notes: 08/05/2017 Case Management Note Voicemail from pt requesting call back from case management. Notified gold burnisher Department. Shaila Blanco to contact pt. Date Signed: 08/05/2017 04:17 PM Electronically Signed By:Ana Olivas RN
== END 2017-07-27 14:57 | disposition home health service (06) | DRG 308 ==
LOC: EDUNIT# → F2W 17:30
PROVIDERS: ADMIT Internal Medicine; ATTEND Internal Medicine
DX: I47.1 Supraventricular tachycardia (principal); A04.72 Enterocolitis due to Clostridium difficile, not specified as recurrent; E43 Unspecified severe protein-calorie malnutrition; Z68.1 Body mass index [BMI] 19.9 or less, adult; I95.9 Hypotension, unspecified; I50.30 Unspecified diastolic (congestive) heart failure; M06.9 Rheumatoid arthritis, unspecified
CPT/HCPCS: 96374; 97116-GP; 97162-GP; 97166-GO; G8978-GP-CJ; G8979-GP-CI; G8987-GO-CI; G8988-GO-CI; J0153; Q9967

== ENCOUNTER → 2017-08-05 | Outpatient (CLI) | payer OTHER | LOC: BHFA 14:45 | PROVIDERS: ATTEND Physician Assistant | DX: I50.32 Chronic diastolic (congestive) heart failure (principal); I36.1 Nonrheumatic tricuspid (valve) insufficiency; R00.0 Tachycardia, unspecified; R42 Dizziness and giddiness ==

== ENCOUNTER → 2018-03-24 | Outpatient (CLI) | payer OTHER | LOC: BHFA 11:15 | PROVIDERS: ATTEND Physician Assistant | DX: I50.32 Chronic diastolic (congestive) heart failure (principal); I36.1 Nonrheumatic tricuspid (valve) insufficiency ==